=== PATIENT | female | born 1980 | race American Indian/Alaskan Native ===

== ENCOUNTER 2021-10-14 10:46 | Inpatient (IN) | payer OTHER, MEDICAID ==
[2021-10-14] MEDS ORDERED: hydrALAZINE 20 MG/1 ML INJ ONE (11:30)
[2021-10-14] MEDS ORDERED: MAGNESIUM SULFATE 40GM/1000ML 40 GM/1,000 ML BAG IV ONE (11:32)
[2021-10-14] MEDS ORDERED: MAGNESIUM SULFATE 4 GM/100 ML BAG IV ONE (11:32)
[2021-10-14] MEDS ORDERED: LACTATED RINGERS 1,000 ML ONE ×2 (11:32→15:35)
[2021-10-14] MEDS ORDERED: METOCLOPRAMIDE 10 MG/2 ML INJ IV NR (11:36)
[2021-10-14] MEDS ORDERED: FAMOTIDINE 20 MG/2 ML INJ IV NR (11:36)
[2021-10-14] MEDS ORDERED: BICITRA ORAL LIQD 30ML PO NR (11:36)
--- NOTE | 2021-10-14 11:44 | History and Physical Report ---
History of Present Illness Date of examination: 10/14/21 Date of admission: 10/14/21 11:27 Chief complaint: sent from [facility] for steroids and delivery for severe elevated BP History of present illness: at 32+wks by LMP c/w U/S seen at [facility] today and sent over with severe IUGR, severely gestational HTN for delivery and pt to get steroids as we stablize her BP in prep for the OR. Pt admits to movement and states she did not want to deliver here at [facility] because of previous bad experiences. Pt wanted to go to [place] to deliver her baby. PT admits to headache. Denies vag bleed or LOF or feeling contrations. Past History Past Medical History: other (Sickle cell trait) Past Surgical History: section (x1) - Obstetrical History : 4 Hx # Term Pregnancies: 2 (last del term c/s due NRFHR) Number of Living Children: 2 Medications and Allergies Allergies Allergy/AdvReac Type Severity Reaction Status Date / Time No Known Allergies Allergy Unverified 01/14/16 12:26 Home Medications Medication Instructions Recorded Confirmed Last Taken Type Ibuprofen [Motrin] 600 mg PO Q6H PRN #20 tablet 01/14/16 Unknown Rx methOCARBAMOL [Robaxin TAB] 500 mg PO BID PRN #14 tab 01/14/16 Unknown Rx Active Meds: Active Medications Citric Acid/Sodium Citrate (Bicitra Oral Liqd 30ml) 30 ml PO ONCE NR Stop: 10/14/21 18:00 Famotidine (Famotidine 20 Mg/2 Ml Inj) 20 mg IV ONCE ONE Stop: 10/14/21 11:37 Hydralazine HCl (Hydralazine 20 Mg/1 Ml Inj) 10 mg IV Q30MIN PRN PRN Reason: Hypertension Lactated Ringer's (Lactated Ringers) 1,000 mls @ 125 mls/hr IV DIRECT OMKAR Oxytocin/Sodium Chloride (Pitocin/Ns 30 Unit/500ml) 30 units in 500 mls @ 0 mls/hr IV TITR OMKAR; Protocol Magnesium Sulfate (Magnesium Sulfate 4gm/100ml) 4 gm in 100 mls @ 300 mls/hr IV ONCE ONE Stop: 10/14/21 11:51 Magnesium Sulfate (Magnesium Sulfate 40gm/1000ml) 40 gm in 1,000 mls @ 50 mls/hr IV DIRECT OMKAR Lactated Ringer's (Lactated Ringers) 1,000 mls @ 2,250 mls/hr IV PREOP OMKAR Stop: 10/15/21 12:12 Oxytocin/Sodium Chloride (Pitocin/Ns 30 Unit/500ml) 30 units in 500 mls @ 0 mls/hr IV TITR OMKAR; Protocol Cefazolin Sodium (Ancef/Sterile Water 2 Gm/20 Ml) 2 gm in 20 mls @ 80 mls/hr IV PREOP NR; Protocol Stop: 10/14/21 20:00 Labetalol HCl (Labetalol 20 Mg/4 Ml Inj) 20 mg IV ONCE ONE Stop: 10/14/21 11:33 Metoclopramide HCl (Metoclopramide 10 Mg/2 Ml Inj) 10 mg IV ONCE ONE Stop: 10/14/21 11:37 Review of Systems All systems: negative (headache) - Vital Signs Vital signs: Vital Signs Pulse BP 69 229/115 10/14/21 11:29 10/14/21 11:29 Temp Pulse Resp BP Pulse Ox 82 237/105 10/14/21 11:31 10/14/21 11:31 - Physical Exam Breasts: Positive: deferred Cardiovascular: Normal S1 Lungs: Positive: Normal air movement Uterus: Positive: other (small for gest age, gravid uterus, non-tender) - Obstetrical FHR: category 1 Uterine Contraction Monitor Mode: External Results Result Diagrams: 10/14/21 12:27 All other labs normal. Assessment and Plan Gest HTN with severe features, IUGR 1. Discussed with pt that her baby when delivered with go to the NICU and staff consulted to speak with pt 2. Will give mag sulfate now, and then IV hydrallazine and/or labetalol and when BP stable, will proceed for repeat c/section 3. Betamethasone 12mg IM now 4. Pt given the option to go to [facility] but no transfer after she is admitted plan of care discussed; all questions encouraged and answered
[2021-10-14] MEDS ORDERED: LACTATED RINGERS 1,000 ML IV SCH (11:45)
[2021-10-14] MEDS ORDERED: ceFAZolin/Water 2 GM/20 ML 2 GM/20 ML SYRINGE IV NR (12:00)
[2021-10-14] MEDS ORDERED: OXYTOCIN DRIP 30 UNITS/500 ML BAG IV SCH ×2 (12:00)
[2021-10-14] MEDS: LACTATED RINGERS 1,000 ML IV SCH ×2 (12:00→21:29)
[2021-10-14] MEDS ORDERED: ACETAMINOPHEN 500 MG TAB ONE ×2 (12:18→12:19)
[2021-10-14] MEDS ORDERED: KETOROLAC 30 MG/1 ML INJ ONE (12:33)
[2021-10-14] MEDS ORDERED: BUPIVACAINE/PF (0.5%) 5 MG/1 ML 30 ML VIAL INFILTRATI ONE (12:33)
[2021-10-14] MEDS ORDERED: LIDOCAINE MPF (2%) 20 MG/1 ML VIAL 5 ML ONE (12:33)
[2021-10-14] MEDS ORDERED: ONDANSETRON 4 MG/2 ML INJ ONE (12:33)
[2021-10-14] MEDS ORDERED: dexAMETHasone 20 MG/5 ML VIAL ONE (12:33)
[2021-10-14] MEDS: MAGNESIUM SULFATE 40GM/1000ML 40 GM/1,000 ML BAG IV SCH ×2 (12:39→18:15)
[2021-10-14] MEDS ORDERED: BETAMET ACET/BETAMET NA PH 6 MG/ML INJ 5 ML MDV IM ONE (12:39)
[2021-10-14 12:46] LABS: Hemoglobin 14.2 gm/dl (10.1-14.3); Mean Corpuscular HGB Conc 35 % (30-34); Mean Corpuscular Volume 83 fl (79-97); Platelet Count 230 K/mm3 (140-440); Red Blood Count 4.92 M/mm3 (3.65-5.03); Red Cell Distribution Width 14.1 % (13.2-15.2)
[2021-10-14 13:05] LABS: Partial Thromboplastin Time 27.4 Sec. (24.2-36.6)
[2021-10-14 13:09] LABS: INR 0.76 (0.87-1.13)
[2021-10-14] MEDS: hydrALAZINE 20 MG/1 ML INJ IV PRN (13:14)
[2021-10-14 13:16] LABS: Alanine Aminotransferase 27 units/L (7-56); Albumin 3.3 g/dL (3.9-5); Blood Urea Nitrogen 9 mg/dL (7-17); Calcium 9.7 mg/dL (8.4-10.2); Hemolysis Index 11
[2021-10-14 13:27] LABS: BUN/Creatinine Ratio 15; Bilirubin,Direct < 0.2 mg/dL (0-0.2)
--- NOTE | 2021-10-14 13:30 | Consultation ---
History of Present Illness Consult date: 10/14/21 Requesting physician: ASHLEY IVORY Reason for consult: prematurity History of present illness: INDICATIONS FOR CONSULT: Potential premature delivery Maternal Hx: 41 yo female GA: 32 and 0/7 wk Hx: Severe IUGR, Borderline Oligohydramnios, Reactive 1:2, superimposed pre-eclampsia. 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 Family Hx: Noncontributory. Social Hx: ETOH: No, Illegal Drugs: No. Smoking: No meds: Betamethasone x1 upon admission, hydralazine, magnesium, labetalol, zofran, vitamin D3, Vitamin B6, Unisom. Labs, if available: Blood type: B+ AntiBody screen: Negative . HBsAg: Negative RPR: Neg Rubella: Immune GBS: Unknown HIV: NR CH/GC/Trich: Negative Varicella: Non-Immune History of herpes (yet HSV II documented negative in records, ? HSV 1 positive?) Consulted to see this mom who is at 32 weeks with mother and father present in room. Mother was admitted at 32 after being seen at [facility] today and sent over with severe IUGR, severely gestational HTN for delivery and pt to get steroids as we stabilize her BP in prep for the OR During the consult with this patient she was advised of all the standard procedures done to babies born at 32 weeks gestation including admission to NICU. She was also advised of all the possible complications associated with premature . These complications include, but are not limited to IVH, RDS, CV Instability, Sepsis, Anemia of prematurity, Feeding problems, NEC, ROP, , etc. All her questions and concerns were addressed, and she was advised to follow the recommendations from her physicians. She was also encouraged to call for us in case of more questions. Thanks for this consultation. TOTAL TIME SPENT DURING THIS CONSULTATION WAS: 30 minutes. Medications and Allergies Allergies Allergy/AdvReac Type Severity Reaction Status Date / Time No Known Allergies Allergy Unverified 01/14/16 12:26 Home Medications Medication Instructions Recorded Confirmed Last Taken Type Ibuprofen [Motrin] 600 mg PO Q6H PRN #20 tablet 01/14/16 Unknown Rx methOCARBAMOL [Robaxin TAB] 500 mg PO BID PRN #14 tab 01/14/16 Unknown Rx Active Meds: Active Medications Betamethasone Acet/Betameth SodPhos (Betamet Acet/Betamet Na Ph 6 Mg/Ml Inj 5 Ml Mdv) 12 mg IM Q24HR OMKAR Stop: 10/16/21 10:01 Last Admin: 10/14/21 12:41 Dose: 12 mg Citric Acid/Sodium Citrate (Bicitra Oral Liqd 30ml) 30 ml PO ONCE NR Stop: 10/14/21 18:00 Famotidine (Famotidine 20 Mg/2 Ml Inj) 20 mg IV ONCE NR Stop: 10/14/21 18:00 Hydralazine HCl (Hydralazine 20 Mg/1 Ml Inj) 10 mg IV Q30MIN PRN PRN Reason: Hypertension Last Admin: 10/14/21 13:14 Dose: 10 mg Lactated Ringer's (Lactated Ringers) 1,000 mls @ 125 mls/hr IV DIRECT OMKAR Last Admin: 10/14/21 12:00 Dose: 125 mls/hr Oxytocin/Sodium Chloride (Pitocin/Ns 30 Unit/500ml) 30 units in 500 mls @ 0 mls/hr IV TITR OMKAR; Protocol Magnesium Sulfate (Magnesium Sulfate 40gm/1000ml) 40 gm in 1,000 mls @ 50 mls/hr IV DIRECT OMKAR Last Admin: 10/14/21 12:39 Dose: 2 gm/hr, 50 mls/hr Lactated Ringer's (Lactated Ringers) 1,000 mls @ 2,250 mls/hr IV PREOP OMKAR Stop: 10/15/21 12:12 Oxytocin/Sodium Chloride (Pitocin/Ns 30 Unit/500ml) 30 units in 500 mls @ 0 mls/hr IV TITR OMKAR; Protocol Cefazolin Sodium (Ancef/Sterile Water 2 Gm/20 Ml) 2 gm in 20 mls @ 80 mls/hr IV PREOP NR; Protocol Stop: 10/14/21 20:00 Labetalol HCl (Labetalol 200 Mg Tab) 200 mg PO BID OMKAR Metoclopramide HCl (Metoclopramide 10 Mg/2 Ml Inj) 10 mg IV ONCE NR Stop: 10/14/21 16:00 Exam Vital Signs Pulse BP 69 229/115 10/14/21 11:29 10/14/21 11:29 Temp Pulse Resp BP Pulse Ox 100 H 172/92 100 01/25/22 13:22 10/14/21 13:20 10/14/21 13:22 Results - Laboratory Findings 10/14/21 12:27 10/14/21 12:27 Abnormal lab results 10/14/21 10/14/21 10/14/21 Range/Units 12:27 12:27 12:27 MCHC 35 H (30-34) % PT 11.6 L (12.2-14.9) Sec. INR 0.76 L (0.87-1.13) Carbon Dioxide 19 L (22-30) mmol/L Alkaline Phosphatase 258 H (35-129) units/L Albumin 3.3 L (3.9-5) g/dL
[2021-10-14 14:04] LABS: Bilirubin,Urine NEG (Negative); Blood,Urine SM (Negative); Color,Urine Yellow (Yellow); Urobilinogen,Urine < 2.0 mg/dL (<2.0)
[2021-10-14 14:06] LABS: Protein,Urine >500 mg/dL (Negative)
--- NOTE | 2021-10-14 14:15 | Event Note ---
Date: 10/14/21 Pt has mag sulfate bolus and 2Gm/Hr in progress, no response to scalp stimulation. FHR category II and oxygen in progress. Cervix closed/thick/ high with irregular contractions noted. BP treated with hydrallazine 10mg x2 and will now give 20mg labetalol for BP 170's /80's; pt received consult from NICU. Plan to do repeat with refractory HTN. Pt told that if baby allows, I would love to get a 2nd dose of steroids in. Anesthesiologist notified of plan and will proceed to OR when the room is ready per charge nurse. All questions encouraged and answered. Pt has signed consents.
[2021-10-14] MEDS ORDERED: PHENYLEPHRINE 10 MG/1 ML INJ SDV ONE (15:02)
[2021-10-14] MEDS ORDERED: ePHEDrine SULFATE 50 MG/1 ML INJ ONE (15:03)
[2021-10-14] MEDS ORDERED: ceFAZolin/STERILE WATER 2 GM/20 ML SYRINGE IV ONE (15:10)
[2021-10-14] MEDS ORDERED: SUCCINYLCHOLINE CHLORIDE 200 MG/10 ML INJ MDV ONE (15:40)
[2021-10-14] MEDS ORDERED: propofoL 200 MG/20 ML VIAL IV ONE (15:40)
[2021-10-14] MEDS ORDERED: SODIUM CHLORIDE 0.9% IRR 1,500 ML BOTTLE IR ONE (15:50)
[2021-10-14] MEDS ORDERED: HYDROmorphone 1 MG/1 ML INJ ONE (15:50)
[2021-10-14] MEDS ORDERED: WATER FOR IRRIG STERILE 1,500 ML BOTTLE IR ONE (15:50)
[2021-10-14] MEDS ORDERED: OXYTOCIN 10 UNIT/1 ML INJ ONE (15:51)
--- NOTE | 2021-10-14 15:56 | Anesthesia Day of Surgery ---
Anesthesia Day of Surgery - Day of Surgery Patient Examined: Yes Patient H&P Reviewed: Yes Patient is NPO: Yes (0700 light breakfast) Beta Blockers: No Cardiac Clearance: No Pulmonary Clearance: No Raheem's Test: N/A
--- NOTE | 2021-10-14 15:57 | Anesthesia Consultation ---
Anesthesia Consult and Med Hx Date of service: 10/14/21 - Airway Anesthetic Teeth Evaluation: Good ROM Head & Neck: Adequate Mental/Hyoid Distance: Adequate Mallampati Class: Class II Intubation Access Assessment: Probably Good - Pulmonary Exam CTA: Yes - Cardiac Exam Cardiac Exam: RRR - Pre-Operative Health Status ASA Pre-Surgery Classification: ASA2, Emergency Proposed Anesthetic Plan: General, Spinal Nerve Block: TAP - Pulmonary Hx Smoking: No Hx Asthma: No Hx Sleep Apnea: No - Cardiovascular System Hx Hypertension: Yes (severe pre eclampsia) Hx Heart Attack/AMI: No Hx Angina: No Hx Peripheral Vascular Disease: No - Central Nervous System Hx Seizures: No Hx Psychiatric Problems: No - Gastrointestinal Hx Gastroesophageal Reflux Disease: No - Endocrine Hx Renal Disease: No Hx Liver Disease: No Hx Insulin Dependent Diabetes: No Hx Non-Insulin Dependent Diabetes: No Hx Hypothyroidism: No Hx Hyperthyroidism: No - Hematic Hx Anemia: No Hx Sickle Cell Disease: No - Other Systems Hx Alcohol Use: No - Additional Comments Anesthesia Medical History Comments: previous c/s
--- NOTE | 2021-10-14 16:01 | Progress Note ---
Spinal Anesthesia Block - Spinal Anesthesia Block Start Time: 15:10 Stop Time: 15:30 Performed by:: YOLANDE HIRSCH (Shanel VARNER) Procedure: Spinal anesthesia block is being performed for [c/s]. H&P, labs have been reviewed. Patient's questions and concerns have been answered. Informed consent has been performed. Timeout has was performed. Patient in sitting position on side of bed. Sterile prep and drape was performed. 3 mL 1% lidoc gosia skin wheal at L [3]-L [4]. Needle introducer advanced. 25-gauge spinal needle advanced, [+] CSF [-] blood. [Marcaine 10mg and Precedex 5mcg] Spinal dose was given. All needles removed. Patient tolerated procedure well. Spinal was performed by Shanel under my supervision. After 10 mins spinal not setting up, so the decision was made to re do the spinal. Patient in sitting position on the bed. Sterile prep and drape was performed. 3 mL 1% lidocaine skin wheal at L [3]-L [4]. Needle introducer advanced. 25- gauge spinal needle advanced, [+] CSF [-] blood. [Marcaine 10mg and Precedex 5mcg] Spinal dose was given. All needles removed. Patient tolerated procedure well. Spinal was performed by me. After 10 mins spinal not setting up, so the decision was made not to perform a 3rd spinal and to proceed with the case under GETA.
[2021-10-14] MEDS ORDERED: CARBOPROST TROMETHAMINE 250 MCG/1 ML INJ IM ONE (16:06)
[2021-10-14] MEDS ORDERED: miSOPROStol 200 MCG TAB ONE (16:06)
[2021-10-14] MEDS ORDERED: SODIUM CHLORIDE 0.9% 100 ML ONE (16:55)
--- NOTE | 2021-10-14 17:37 | Procedure Note ---
OB Delivery Note - Delivery Date of Delivery: 10/14/21 Surgeon: COOKIE IVORY Estimated blood loss: other (285cc by QBL) - Section Preop diagnosis: repeat , nonreassuring FHR tracing Postop diagnosis: other (Uterine Fibroids) Disposition: floor (labor and delivery for 24hr of mag sulfate) Complications: none Narrative: Date: 10/14/21 Surgeon: Cookie Ivory MD Preop Dx: IUP at 32.0wks, severe preeclampsia, H/O C/Section x1 not in labor Postop Dx: same and uterine fibroid Procedure : Repeat Low transverse section Anesthesia: Failed spinal x2 attempts, therefore general anesthesia Intake: 1800cc Output: 300cc clear EBL: 285cc by QBL per nurse After the risks, benefits and alternatives of procedure discussed, patient signed consents and was taken to the operating room. Pt was given spinal anesthesia and same not effective. Pt placed again in high fowlers and spinal re-done and same still not effective therefore general anesthesia. After same was adequate, patient was already prepped and draped in the usual sterile fashion. Minaya catheter in place and draining clear urine. Pt was already given prophylactic antibiotic per protocol and time out was already done Pfannenstiel skin incision was made and taken sharply thru previous scar to the fascia. Superior portion of fascia bluntly and peritoneal cavity entered sharply and manually extended with good visualization of the bladder. The bladder flap was created sharply using scalpel and manually and bladder blade placed. Lower uterine segment then entered transversely and amniotic sac entered using scalpel. Uterine incision extended manually. Smally Infant delivered, bulb suctioned, cord clamped and baby handed to waiting pediatricians. Placenta then manually delivered completely and uterine cavity cleared of all clots and debri. The uterus was exteriorized and closed in 2 layers using 0-monocryl suture in a running locked fashion and then an additional layer of imbrication suture. Excellent hemostasis noted. The gutters were cleared of clots and debri and the uterus replaced in the abdomen. The anterior peritoneum and thin rectus muscle reapproximated using 0- monocryl suture in a running fashion. Rectus fascia closed with 0-vicryl suture in a continuous fashion and subcutaneous tissue copiously irrigated with normal saline and re-approximated using 3-0 vicryl suture in a subcutaneous fashion. Excellent hemostasis remains. The skin was closed with 3-0 monocryl suture and steristrips, dermabond placed to left side approx 1.5cm to cover suture that surfaced thru the skin and then pressure dressing applied. Sponge, lap, instrument and needle counts x2 were normal. Patient tolerated the procedure well and was taken to recovery room stable. Findings: Viable female infant, APGARS 7/8 and weight 1150g and taken to NICU. Umbilical artery gas done in NICU and same was 7.29 and BE-10; Uterus with small anterior fibroids x2, both approx 2cm; normal tubes and ovaries tubes and ovaries. - Infant A at 1 minute: 7 at 5 minutes: 8 Gender: Female (wt 1150g; clear fluid;)
[2021-10-15] MEDS ORDERED: WITCH HAZEL/ GLYCERIN PAD TP PRN (00:11)
[2021-10-15] MEDS ORDERED: LANOLIN/ZINC/DIMETHICONE (LANSINOH) 7 GM TP PRN (00:11)
[2021-10-15] MEDS ORDERED: ACETAMINOPHEN 325 MG TAB PO PRN (00:11)
[2021-10-15] MEDS ORDERED: NALOXONE 0.4 MG/1 ML INJ IV PRN (00:11)
[2021-10-15] MEDS ORDERED: OXYTOCIN DRIP 30 UNITS/500 ML BAG IV SCH (00:11)
[2021-10-15] MEDS ORDERED: ACETAMINOPHEN 500 MG TAB ONE (00:17)
[2021-10-15] MEDS: oxyCODONE /ACETAMINOPHEN 5-325MG TAB PO PRN ×4 (02:15→18:14)
[2021-10-15] MEDS: IBUPROFEN 600 MG TAB PO PRN (02:15)
[2021-10-15] MEDS ORDERED: ACETAMINOPHEN 500 MG TAB PO PRN (03:30)
[2021-10-15 06:10] LABS: Basophils % (Auto) 0.2 % (0.0-1.8); Hematocrit 35.5 % (30.3-42.9); Hemoglobin 11.9 gm/dl (10.1-14.3); Lymphocytes # (Auto) 1.1 K/mm3 (1.2-5.4); Lymphocytes % (Auto) 6.6 % (13.4-35.0); Mean Corpuscular HGB Conc 34 % (30-34); Mean Corpuscular Volume 85 fl (79-97); Monocytes # (Auto) 0.6 K/mm3 (0.0-0.8); Monocytes % (Auto) 3.6 % (0.0-7.3); Platelet Count 236 K/mm3 (140-440); Red Blood Count 4.17 M/mm3 (3.65-5.03); Red Cell Distribution Width 14.3 % (13.2-15.2)
[2021-10-15] MEDS: IBUPROFEN 800 MG TAB PO PRN ×3 (09:17→18:14)
[2021-10-15] MEDS: MORPHINE 4 MG/1 ML INJ IV PRN ×3 (09:22→19:57)
--- NOTE | 2021-10-15 09:39 | Progress Note ---
Assessment and Plan A: POD #1 Preeclampsia P: Follow Routine PostOp Orders Continue MagSO4 x 24 hours post delivery Continue Standard Magnesium Precautions Subjective - Subjective Date of service: 10/15/21 Patient reports: appetite normal, voiding normally (Minaya in place; adquate urine output), flatus, other (States pain medication causes dizziness; denies HAs, visual changes, and N&V) : in NICU Objective - Vital Signs Latest vital signs: Vital Signs Temp Pulse Resp BP Pulse Ox Pulse Ox 10/15/21 09:35 79 96 10/15/21 09:30 83 93 10/15/21 09:25 86 96 10/15/21 09:20 79 96 10/15/21 09:15 78 96 10/15/21 09:10 79 96 10/15/21 09:07 77 131/77 10/15/21 09:05 86 94 10/15/21 09:00 80 96 10/15/21 08:55 80 96 10/15/21 08:50 83 97 10/15/21 08:45 78 96 10/15/21 08:40 87 96 10/15/21 08:37 78 132/82 10/15/21 08:35 80 96 10/15/21 08:30 81 95 10/15/21 08:25 79 95 10/15/21 08:20 79 96 10/15/21 08:15 77 96 10/15/21 08:10 78 96 10/15/21 08:07 77 136/77 10/15/21 08:05 77 95 10/15/21 08:00 80 95 10/15/21 07:55 79 95 10/15/21 07:50 79 95 10/15/21 07:45 77 96 10/15/21 07:40 80 96 10/15/21 07:37 78 133/75 10/15/21 07:35 79 96 10/15/21 07:30 78 95 10/15/21 07:25 78 96 10/15/21 07:20 78 96 10/15/21 07:15 79 95 10/15/21 07:14 84 94 10/15/21 07:10 85 94 10/15/21 07:07 81 134/66 10/15/21 07:05 82 95 10/15/21 07:00 78 95 10/15/21 06:55 79 95 10/15/21 06:50 78 95 10/15/21 06:45 78 95 10/15/21 06:40 77 96 10/15/21 06:37 76 125/74 10/15/21 06:35 77 96 10/15/21 06:31 81 94 10/15/21 06:30 81 95 10/15/21 06:25 80 95 10/15/21 06:20 81 95 10/15/21 06:15 80 96 10/15/21 06:10 79 95 10/15/21 06:07 80 134/75 10/15/21 06:05 78 96 10/15/21 06:00 81 96 10/15/21 05:55 79 96 10/15/21 05:54 79 94 10/15/21 05:50 83 96 10/15/21 05:45 84 96 10/15/21 05:40 79 97 10/15/21 05:37 82 128/69 10/15/21 05:35 80 97 10/15/21 05:30 81 97 10/15/21 05:25 80 96 10/15/21 05:20 82 96 10/15/21 05:15 80 97 10/15/21 05:10 79 98 10/15/21 05:07 82 133/96 10/15/21 05:05 85 94 10/15/21 05:00 81 96 10/15/21 04:55 79 96 10/15/21 04:50 81 96 10/15/21 04:45 82 96 10/15/21 04:40 84 95 10/15/21 04:37 82 137/83 10/15/21 04:35 82 96 10/15/21 04:30 85 96 10/15/21 04:25 81 96 10/15/21 04:20 82 96 10/15/21 04:15 80 95 10/15/21 04:10 81 95 10/15/21 04:07 81 139/85 10/15/21 04:05 82 96 10/15/21 04:00 82 96 10/15/21 03:55 79 97 10/15/21 03:50 82 96 10/15/21 03:46 85 94 10/15/21 03:45 80 95 10/15/21 03:40 83 94 10/15/21 03:38 81 94 01/26/22 03:37 80 142/82 10/15/21 03:35 80 95 10/15/21 03:30 82 95 10/15/21 03:25 79 95 10/15/21 03:20 80 95 10/15/21 03:15 84 95 10/15/21 03:10 82 94 10/15/21 03:07 82 135/82 94 10/15/21 03:05 81 96 10/15/21 03:00 81 96 10/15/21 02:55 84 96 10/15/21 02:50 82 95 10/15/21 02:45 84 95 10/15/21 02:40 87 96 10/15/21 02:35 81 95 10/15/21 02:34 80 142/88 10/15/21 02:30 82 96 10/15/21 02:29 81 145/89 10/15/21 02:25 83 96 10/15/21 02:24 83 139/87 10/15/21 02:20 78 97 10/15/21 02:19 80 133/81 10/15/21 02:15 80 96 10/15/21 02:14 78 137/81 10/15/21 02:10 78 95 10/15/21 02:09 81 134/80 10/15/21 02:05 78 96 10/15/21 02:04 81 139/81 10/15/21 02:00 79 95 10/15/21 01:59 78 142/83 10/15/21 01:55 76 95 10/15/21 01:54 78 142/85 10/15/21 01:50 79 96 10/15/21 01:49 82 137/82 10/15/21 01:45 80 96 10/15/21 01:44 82 146/87 10/15/21 01:40 81 96 10/15/21 01:39 83 148/87 10/15/21 01:35 80 96 10/15/21 01:34 81 151/87 10/15/21 01:30 80 96 10/15/21 01:29 82 154/89 10/15/21 01:25 80 96 10/15/21 01:24 81 153/88 10/15/21 01:20 80 96 10/15/21 01:19 80 154/89 10/15/21 01:15 78 97 10/15/21 01:14 76 149/87 10/15/21 01:10 80 96 10/15/21 01:09 77 157/90 10/15/21 01:05 81 97 10/15/21 01:04 77 156/92 10/15/21 01:03 97.9 F 10/15/21 01:00 81 97 10/15/21 00:59 78 150/91 10/15/21 00:55 80 96 10/15/21 00:54 82 148/88 10/15/21 00:50 82 96 10/15/21 00:48 81 147/88 10/15/21 00:45 80 96 10/15/21 00:44 81 154/93 10/15/21 00:40 82 96 10/15/21 00:39 80 152/90 10/15/21 00:38 81 146/86 10/15/21 00:35 81 96 10/15/21 00:34 80 161/94 10/15/21 00:33 82 159/95 10/15/21 00:31 79 160/96 10/15/21 00:30 77 161/96 97 10/15/21 00:25 80 97 10/15/21 00:20 84 96 10/15/21 00:18 81 165/91 10/15/21 00:17 81 165/91 10/15/21 00:15 80 96 10/15/21 00:10 84 96 10/15/21 00:05 83 96 10/15/21 00:01 90 164/89 10/15/21 00:00 85 97 10/14/21 23:55 83 95 10/14/21 23:53 87 94 10/14/21 23:50 83 95 10/14/21 23:47 84 165/90 10/14/21 23:45 85 96 10/14/21 23:40 82 96 10/14/21 23:35 81 96 10/14/21 23:32 82 170/93 10/14/21 23:30 81 96 10/14/21 23:25 83 96 10/14/21 23:20 79 96 10/14/21 23:17 86 171/92 10/14/21 23:15 79 96 10/14/21 23:10 78 96 10/14/21 23:05 79 96 10/14/21 23:02 77 166/91 10/14/21 23:00 78 96 10/14/21 22:55 78 97 10/14/21 22:50 78 96 10/14/21 22:47 75 172/95 10/14/21 22:45 78 96 10/14/21 22:40 79 96 10/14/21 22:35 74 97 10/14/21 22:32 80 160/93 10/14/21 22:30 77 96 10/14/21 22:25 77 96 10/14/21 22:20 81 97 10/14/21 22:17 80 161/91 10/14/21 22:15 79 97 10/14/21 22:10 73 97 10/14/21 22:05 78 97 10/14/21 22:02 71 167/94 10/14/21 22:00 75 97 10/14/21 21:55 74 97 10/14/21 21:50 75 97 10/14/21 21:47 73 166/98 10/14/21 21:45 74 97 10/14/21 21:40 73 97 10/14/21 21:38 79 94 10/14/21 21:35 75 97 10/14/21 21:30 80 97 10/14/21 21:29 77 162/97 10/14/21 21:28 79 162/97 10/14/21 21:25 73 97 10/14/21 21:20 87 96 10/14/21 21:17 71 157/95 10/14/21 21:15 72 96 10/14/21 21:10 75 97 10/14/21 21:05 74 97 10/14/21 21:02 74 153/95 10/14/21 21:00 76 97 10/14/21 20:55 79 96 10/14/21 20:50 76 95 10/14/21 19:15 99 10/14/21 19:00 98.0 F 82 18 139/99 100 10/14/21 18:45 79 22 144/96 100 10/14/21 18:30 77 17 151/98 100 10/14/21 18:15 80 15 148/100 100 10/14/21 18:00 76 16 158/98 100 10/14/21 17:45 79 22 144/95 100 10/14/21 17:40 80 18 148/90 100 10/14/21 17:35 78 17 135/78 100 10/14/21 17:31 97.7 F 92 H 15 158/99 100 10/14/21 14:47 92 H 99 10/14/21 14:43 95 H 99 10/14/21 14:38 90 151/81 10/14/21 14:37 92 H 99 10/14/21 14:32 98 H 99 10/14/21 14:28 94 H 99 10/14/21 14:23 88 156/83 10/14/21 14:22 90 99 10/14/21 14:17 96 H 99 10/14/21 14:12 98 H 99 10/14/21 14:08 101 H 169/88 10/14/21 14:07 104 H 99 10/14/21 14:02 104 H 99 10/14/21 13:58 107 H 99 10/14/21 13:54 101 H 179/88 10/14/21 13:52 111 H 99 10/14/21 13:47 106 H 99 10/14/21 13:43 99 H 100 10/14/21 13:38 93 H 100 10/14/21 13:33 95 H 140/86 10/14/21 13:32 95 H 100 10/14/21 13:27 90 172/92 100 10/14/21 13:22 100 H 100 10/14/21 13:20 86 172/92 10/14/21 13:17 88 100 10/14/21 13:14 82 195/103 10/14/21 13:12 73 100 10/14/21 13:09 73 195/103 10/14/21 13:06 73 100 10/14/21 13:02 78 100 10/14/21 12:57 83 99 10/14/21 12:52 83 99 10/14/21 12:47 82 99 10/14/21 12:42 85 100 10/14/21 12:37 86 100 10/14/21 12:32 81 172/96 100 10/14/21 12:27 89 100 10/14/21 12:11 73 184/106 10/14/21 12:05 73 237/105 01/25/22 11:31 82 237/105 01/25/22 11:29 69 229/115 Intake and Output 10/14/21 10/15/21 10/15/21 22:59 06:59 14:59 Intake Total 3180 Output Total 600 Balance 2580 Intake: IV 3180 Lactated Ringers 1,000 ml 1000 @ 125 mls/hr IV DIRECT OMKAR Rx#:[id number] MAGNESIUM SULFATE 40GM/ 280 1000ML 40 gm In 1,000 ml @ 2 GM/HR 50 mls/hr IV DIRECT OMKAR Rx#:[id number] Output: Urine 600 Other: Weight 81.647 kg Estimated Blood Loss 295 - Exam Breasts: Present: normal Cardiovascular: Present: Regular rate Lungs: Present: Clear to auscultation, Normal air movement Abdomen: Present: normal appearance, soft, normal bowel sounds Uterus: Present: normal, firm, fundal height at umbilicus Extremities: Present: normal Incision: Present: dry, dressed - Labs Labs: Abnormal lab results 10/14/21 10/14/21 10/14/21 Range/Units 12:27 12:27 12:27 WBC (4.5-11.0) K/mm3 MCHC 35 H (30-34) % Lymph % (Auto) (13.4-35.0) % Lymph # (Auto) (1.2-5.4) K/mm3 Seg Neutrophils % (40.0-70.0) % Seg Neutrophils # (1.8-7.7) K/mm3 PT 11.6 L (12.2-14.9) Sec. INR 0.76 L (0.87-1.13) Carbon Dioxide 19 L (22-30) mmol/L Magnesium (1.7-2.3) mg/dL Alkaline Phosphatase 258 H (35-129) units/L Albumin 3.3 L (3.9-5) g/dL 10/15/21 10/15/21 Range/Units 05:58 05:58 WBC 16.9 H (4.5-11.0) K/mm3 MCHC (30-34) % Lymph % (Auto) 6.6 L (13.4-35.0) % Lymph # (Auto) 1.1 L (1.2-5.4) K/mm3 Seg Neutrophils % 89.6 H (40.0-70.0) % Seg Neutrophils # 15.1 H (1.8-7.7) K/mm3 PT (12.2-14.9) Sec. INR (0.87-1.13) Carbon Dioxide (22-30) mmol/L Magnesium 6.10 H (1.7-2.3) mg/dL Alkaline Phosphatase (35-129) units/L Albumin (3.9-5) g/dL
[2021-10-15] MEDS ORDERED: BETAMET ACET/BETAMET NA PH 6 MG/ML INJ 5 ML MDV IM SCH (10:00)
[2021-10-15] MEDS ORDERED: MAGNESIUM SULFATE 40GM/1000ML 40 GM/1,000 ML BAG IV ONE (10:09)
[2021-10-15] MEDS: PRENATAL VIT27-FE FUMARATE-FOLIC ACID VIT TAB PO SCH (10:18)
[2021-10-15] MEDS: FERROUS SULFATE 325 MG TAB PO SCH (10:18)
[2021-10-15] MEDS ORDERED: MAGNESIUM SULFATE 40GM/1000ML 40 GM/1,000 ML BAG IV SCH (13:00)
--- NOTE | 2021-10-15 13:53 | Post Anesthesia Evaluation ---
- Post Anesthesia Evaluation Patient Participated: Yes Airway Patent: Yes Stable Respiratory Function: Yes Nausea/Vomiting: No Temp > 96.8F: Yes Pain Manageable: Yes Adequeate Hydration: Yes Anesthesia Complications: No Block Receding Appropriately: Yes Patient on Ventilator: No
--- NOTE | 2021-10-15 14:45 | Cat Scan Report ---
CT ABDOMEN AND PELVIS WITHOUT CONTRAST INDICATION / CLINICAL INFORMATION: abdominal pain. TECHNIQUE: Axial CT images were obtained through the abdomen and pelvis without IV contrast. All CT scans at this location are performed using CT dose reduction for ALARA by means of automated exposure control. COMPARISON: None available. FINDINGS: LOWER CHEST: Small basilar effusions have associated atelectasis. LIVER: No significant abnormality. GALLBLADDER: No significant abnormality. BILE DUCTS: No significant abnormality. PANCREAS: No significant abnormality. SPLEEN: No significant abnormality. ADRENALS: No significant abnormality. RIGHT KIDNEY / URETER: No significant abnormality. LEFT KIDNEY / URETER: No significant abnormality. STOMACH / SMALL BOWEL: Moderate distention without wall thickening. COLON: Mild/moderate distention without wall thickening. APPENDIX: No significant abnormality. PERITONEUM: No significant free fluid. No free air. No fluid collection. LYMPH NODES: No significant adenopathy. VASCULAR STRUCTURES: No significant abnormality. URINARY BLADDER: No significant abnormality. REPRODUCTIVE ORGANS: Enlarged uterus with mild internal debris. ADDITIONAL FINDINGS: Postsurgical changes anterior abdominal wall inferiorly including air, fluid and a small amount of blood. Mild/moderate high density material which is presumably blood is seen at th e extraperitoneal space anteriorly adjacent to the bladder extending along the paracolic gutters left greater than right. SKELETAL SYSTEM: No significant abnormality. IMPRESSION: 1. Presumed recent with expected postsurgical change at the uterus. 2. Mild/moderate extra peritoneal high density material is presumably blood. 3. Mild/moderate postoperative ileus. 4. Small basilar effusions with associated atelectasis. Signer Name: Floyd Brennan MD Signed: 10/15/2021 2:41 PM Workstation Name: [id number]
[2021-10-15] MEDS: SIMETHICONE 80 MG CHEW TAB PO PRN (15:38)
[2021-10-15] MEDS ORDERED: MAGNESIUM HYDROXIDE (MOM) ORAL LIQD UDC PO PRN (21:23)
[2021-10-16] MEDS: IBUPROFEN 800 MG TAB PO PRN ×2 (01:08→05:58)
[2021-10-16] MEDS: oxyCODONE /ACETAMINOPHEN 5-325MG TAB PO PRN ×2 (01:08→05:58)
[2021-10-16] MEDS: hydrALAZINE 20 MG/1 ML INJ IV PRN (08:29)
[2021-10-16] MEDS: MORPHINE 4 MG/1 ML INJ IV PRN ×2 (08:31→18:39)
[2021-10-16] MEDS: ONDANSETRON 4 MG/2 ML INJ IV PRN ×2 (10:11→18:34)
--- NOTE | 2021-10-16 10:20 | Progress Note ---
Assessment and Plan A: S/P Repeat LTCS with severe preeclampsia No gas N/V P: Continue routine pp orders Labetalol increased to 300mg bid Zofran for n/v MOM and Simethicone for gas Encourage ambulation Dr Leung consulted Subjective - Subjective Date of service: 10/16/21 Principal diagnosis: s/p repeat LTCS Patient reports: voiding normally, pain well controlled, appetite poor, nauseated, other (Pt reports no gas yet and nausea and vomiting. ) [employer]: doing well, bottle feeding Objective - Vital Signs Latest vital signs: Vital Signs Temp Pulse Resp BP BP BP Pulse Ox 10/16/21 09:55 92 H 150/95 10/16/21 09:49 93 H 152/94 10/16/21 09:36 95 H 159/98 10/16/21 08:46 97 H 20 165/96 96 10/16/21 08:40 91 H 20 171/102 97 10/16/21 08:33 90 20 178/102 97 10/16/21 08:31 18 10/16/21 08:29 87 183/103 10/16/21 03:50 97.9 F 74 20 146/80 95 10/16/21 00:13 98.0 F 80 20 144/72 95 10/15/21 21:58 75 143/89 10/15/21 21:06 97.6 F 73 20 143/89 95 10/15/21 20:35 10/15/21 20:04 78 96 10/15/21 19:59 77 95 10/15/21 19:57 18 10/15/21 19:54 77 96 10/15/21 19:50 98.1 F 10/15/21 19:49 76 96 10/15/21 19:39 76 130/78 10/15/21 19:27 10/15/21 19:14 18 10/15/21 19:09 83 97 10/15/21 19:08 78 153/91 10/15/21 19:04 85 96 10/15/21 18:59 88 97 10/15/21 18:54 81 158/97 96 10/15/21 18:49 80 96 10/15/21 18:44 82 97 10/15/21 18:39 82 160/100 97 10/15/21 18:34 82 96 10/15/21 18:29 80 96 10/15/21 18:24 83 140/94 96 10/15/21 18:19 83 96 10/15/21 18:14 85 96 10/15/21 18:09 83 97 10/15/21 18:04 79 95 10/15/21 17:59 78 96 10/15/21 17:54 79 96 10/15/21 17:49 80 95 10/15/21 17:44 82 95 10/15/21 17:39 78 95 10/15/21 17:36 76 136/78 10/15/21 17:34 78 95 10/15/21 17:31 80 94 10/15/21 17:29 83 95 10/15/21 17:24 81 96 10/15/21 17:19 84 95 10/15/21 17:17 80 94 10/15/21 17:14 83 95 10/15/21 17:09 77 95 10/15/21 17:08 80 94 10/15/21 17:04 78 95 10/15/21 17:00 80 94 10/15/21 16:59 81 95 10/15/21 16:54 82 96 10/15/21 16:49 83 95 10/15/21 16:44 79 95 10/15/21 16:42 80 94 10/15/21 16:39 81 95 10/15/21 16:36 81 137/85 10/15/21 16:34 83 96 10/15/21 16:30 80 94 10/15/21 16:29 81 95 10/15/21 16:25 82 94 10/15/21 16:24 83 95 10/15/21 16:19 87 96 10/15/21 16:18 86 94 10/15/21 16:14 86 95 10/15/21 16:11 87 94 10/15/21 16:09 82 95 10/15/21 16:04 81 95 10/15/21 15:59 86 95 10/15/21 15:54 81 96 10/15/21 15:49 86 95 10/15/21 15:44 83 95 10/15/21 15:39 87 96 10/15/21 15:36 82 141/83 10/15/21 15:34 83 95 10/15/21 15:29 85 96 10/15/21 15:24 84 96 10/15/21 15:19 85 96 10/15/21 15:14 86 95 10/15/21 15:09 86 97 10/15/21 15:04 87 97 10/15/21 14:59 86 95 10/15/21 14:54 84 96 10/15/21 14:49 85 97 10/15/21 14:44 83 97 10/15/21 14:39 79 97 10/15/21 14:34 82 98 10/15/21 14:10 82 96 10/15/21 14:07 81 147/76 10/15/21 14:05 83 97 10/15/21 14:00 82 96 10/15/21 13:55 80 97 10/15/21 13:50 86 97 10/15/21 13:45 81 97 10/15/21 13:40 84 97 10/15/21 13:37 82 151/79 10/15/21 13:35 80 97 10/15/21 13:30 83 97 10/15/21 13:25 84 96 10/15/21 13:20 80 96 10/15/21 13:15 85 96 10/15/21 13:10 82 96 10/15/21 13:07 81 147/84 10/15/21 13:05 78 95 10/15/21 13:00 83 96 10/15/21 12:55 80 95 10/15/21 12:50 79 96 10/15/21 12:45 78 96 10/15/21 12:43 84 94 10/15/21 12:40 80 95 10/15/21 12:37 78 148/83 10/15/21 12:35 78 96 10/15/21 12:30 79 96 10/15/21 12:25 84 96 10/15/21 12:20 83 97 10/15/21 12:15 81 93 10/15/21 12:10 87 97 10/15/21 12:07 79 92 10/15/21 12:05 83 96 10/15/21 12:00 80 96 10/15/21 11:55 81 96 10/15/21 11:50 80 96 10/15/21 11:45 79 95 10/15/21 11:40 79 96 10/15/21 11:37 78 141/76 10/15/21 11:35 80 96 10/15/21 11:30 83 97 10/15/21 11:25 78 96 10/15/21 11:20 84 96 10/15/21 11:15 81 96 10/15/21 11:10 79 97 10/15/21 11:07 79 137/64 10/15/21 11:05 78 96 10/15/21 11:00 78 96 10/15/21 10:56 79 93 10/15/21 10:55 82 96 10/15/21 10:50 80 95 10/15/21 10:45 79 96 10/15/21 10:41 81 94 10/15/21 10:40 81 95 10/15/21 10:37 75 134/74 10/15/21 10:35 76 97 10/15/21 10:30 81 97 10/15/21 10:28 83 92 10/15/21 10:25 82 96 10/15/21 10:23 82 94 10/15/21 10:20 82 96 10/15/21 10:15 86 95 Pulse Ox 10/16/21 09:55 10/16/21 09:49 10/16/21 09:36 10/16/21 08:46 10/16/21 08:40 10/16/21 08:33 10/16/21 08:31 10/16/21 08:29 10/16/21 03:50 10/16/21 00:13 10/15/21 21:58 10/15/21 21:06 10/15/21 20:35 95 10/15/21 20:04 10/15/21 19:59 10/15/21 19:57 10/15/21 19:54 10/15/21 19:50 10/15/21 19:49 10/15/21 19:39 10/15/21 19:27 97 10/15/21 19:14 10/15/21 19:09 10/15/21 19:08 10/15/21 19:04 10/15/21 18:59 10/15/21 18:54 10/15/21 18:49 10/15/21 18:44 10/15/21 18:39 10/15/21 18:34 10/15/21 18:29 10/15/21 18:24 10/15/21 18:19 10/15/21 18:14 10/15/21 18:09 10/15/21 18:04 10/15/21 17:59 10/15/21 17:54 10/15/21 17:49 10/15/21 17:44 10/15/21 17:39 10/15/21 17:36 10/15/21 17:34 10/15/21 17:31 10/15/21 17:29 10/15/21 17:24 10/15/21 17:19 10/15/21 17:17 10/15/21 17:14 10/15/21 17:09 10/15/21 17:08 10/15/21 17:04 10/15/21 17:00 10/15/21 16:59 10/15/21 16:54 10/15/21 16:49 10/15/21 16:44 10/15/21 16:42 10/15/21 16:39 10/15/21 16:36 10/15/21 16:34 10/15/21 16:30 10/15/21 16:29 10/15/21 16:25 10/15/21 16:24 10/15/21 16:19 10/15/21 16:18 10/15/21 16:14 10/15/21 16:11 10/15/21 16:09 10/15/21 16:04 10/15/21 15:59 10/15/21 15:54 10/15/21 15:49 10/15/21 15:44 10/15/21 15:39 10/15/21 15:36 10/15/21 15:34 10/15/21 15:29 10/15/21 15:24 10/15/21 15:19 10/15/21 15:14 10/15/21 15:09 10/15/21 15:04 10/15/21 14:59 10/15/21 14:54 10/15/21 14:49 10/15/21 14:44 10/15/21 14:39 10/15/21 14:34 10/15/21 14:10 10/15/21 14:07 10/15/21 14:05 10/15/21 14:00 10/15/21 13:55 10/15/21 13:50 10/15/21 13:45 10/15/21 13:40 10/15/21 13:37 10/15/21 13:35 10/15/21 13:30 10/15/21 13:25 10/15/21 13:20 10/15/21 13:15 10/15/21 13:10 10/15/21 13:07 10/15/21 13:05 10/15/21 13:00 10/15/21 12:55 10/15/21 12:50 10/15/21 12:45 10/15/21 12:43 10/15/21 12:40 10/15/21 12:37 10/15/21 12:35 10/15/21 12:30 10/15/21 12:25 10/15/21 12:20 10/15/21 12:15 10/15/21 12:10 10/15/21 12:07 10/15/21 12:05 10/15/21 12:00 10/15/21 11:55 10/15/21 11:50 10/15/21 11:45 10/15/21 11:40 10/15/21 11:37 10/15/21 11:35 10/15/21 11:30 10/15/21 11:25 10/15/21 11:20 10/15/21 11:15 10/15/21 11:10 10/15/21 11:07 10/15/21 11:05 10/15/21 11:00 10/15/21 10:56 10/15/21 10:55 10/15/21 10:50 10/15/21 10:45 10/15/21 10:41 10/15/21 10:40 10/15/21 10:37 10/15/21 10:35 10/15/21 10:30 10/15/21 10:28 10/15/21 10:25 10/15/21 10:23 10/15/21 10:20 10/15/21 10:15 Intake and Output 10/15/21 10/16/21 10/16/21 22:59 06:59 14:59 Intake Total 360.833 480 Output Total 1999 300 Balance -1639.167 180 Intake: IV 360.833 MAGNESIUM SULFATE 40GM/ 260.833 1000ML 40 gm In 1,000 ml @ 2 GM/HR 50 mls/hr IV DIRECT [facility] Rx#:[id number] ceFAZolin 2 GM In NaCl 0. 100 9% 100 ml @ 200 mls/hr IV Q8H [facility] Rx#:[id number] Oral 480 Output: Urine 2000 300 Indwelling Catheter 1400 Uretheral (Minaya) 600 Void 300 Other: Total, Intake Amount 240 Total, Output Amount 400 300 - Exam Breasts: Present: normal Abdomen: Present: distention, abnormal bowel sounds Vulva: both: normal Uterus: Present: normal, firm, fundal height below umbilicus Extremities: Present: normal Incision: Present: normal, dry, intact - Labs Labs: Abnormal lab results 10/15/21 Range/Units 17:56 Magnesium 6.70 H (1.7-2.3) mg/dL
[2021-10-16] MEDS ORDERED: SODIUM CHLORIDE P/F VIAL 10 ML 10 ML ONE (18:26)
--- NOTE | 2021-10-16 19:34 | XRay Report ---
ABDOMEN 1 VIEW(S) INDICATION / CLINICAL INFORMATION: vomiting/abd distention. COMPARISON: CT one day prior FINDINGS: TUBES / LINES: None. BOWEL GAS PATTERN: Gaseous distention of small and large bowel is again noted similar to the CT. FREE AIR / EXTRALUMINAL GAS: None seen. ADDITIONAL FINDINGS: No significant additional findings. IMPRESSION: 1. Persistent presumed adynamic ileus. Signer Name: Petey Hamilton MD Signed: 10/16/2021 7:30 PM Workstation Name: [id number]
[2021-10-16 20:41] LABS: Basophils % (Auto) 0.1 % (0.0-1.8); Eosinophils % (Auto) 0.2 % (0.0-4.3); Hematocrit 31.3 % (30.3-42.9); Hemoglobin 10.8 gm/dl (10.1-14.3); Lymphocytes % (Auto) 9.4 % (13.4-35.0); Mean Corpuscular HGB Conc 34 % (30-34); Mean Corpuscular Volume 86 fl (79-97); Monocytes # (Auto) 0.4 K/mm3 (0.0-0.8); Monocytes % (Auto) 3.7 % (0.0-7.3); Platelet Count 249 K/mm3 (140-440); Red Blood Count 3.65 M/mm3 (3.65-5.03); Red Cell Distribution Width 14.7 % (13.2-15.2)
[2021-10-16 20:50] LABS: Alanine Aminotransferase 216 units/L (7-56); Albumin 2.7 g/dL (3.9-5); Blood Urea Nitrogen 9 mg/dL (7-17); Calcium 7.5 mg/dL (8.4-10.2); Hemolysis Index 3
[2021-10-16 20:51] LABS: BUN/Creatinine Ratio 15
[2021-10-16] MEDS: LACTATED RINGERS 1,000 ML IV SCH (23:37)
[2021-10-16] MEDS: METOCLOPRAMIDE 10 MG/2 ML INJ IV PRN (23:38)
[2021-10-17] MEDS: LACTATED RINGERS 1,000 ML IV SCH (05:53)
[2021-10-17] MEDS: METOCLOPRAMIDE 10 MG/2 ML INJ IV PRN ×2 (05:54→13:46)
--- NOTE | 2021-10-17 11:22 | Progress Note ---
Assessment and Plan POD#3 repeat c/section with ileus. severe preeclampsia 1. Will continue NPO, reglan ATC and add IV antibiotics x24hrs with zosyn antibiotic 2. Await cbc and cmp repeated; If hgb falls, then will consult IR to see if there's active bleed in the extraperitoneal area noted on CT scan 2 days ago. 3. Milk expressed bilaterally from both breasts and pt reassured 4. Labetalol increased 300mg every 8hrs 5. Plan of care discussed and pt is allowed to shower and be transported to see her baby All questions encouraged and answered Subjective Date of service: 10/17/21 Principal diagnosis: POD#3 Repeat C/S with ileus, severe preeclampsia with high LFTs now Interval history: pt states she passed gas yesterday and feels better today, but no gas today. Pt denies nausea and wants to eat real food. pt has been voiding without difficulty. Pain controlled with meds and only anteriorly. Denies back or flank pain. pt wants to start breast pumping and states she has no milk. Denies SOB, chest pain or dizziness. pt ambulates to restroom without difficulty. Objective - Constitutional Vitals: Vital Signs - 12hr 10/16/21 10/16/21 10/17/21 23:18 23:20 00:34 Temperature 99.5 F Pulse Rate 84 84 92 H Respiratory 18 16 Rate Blood Pressure 174/84 174/84 Blood Pressure 137/84 [Left] O2 Sat by Pulse 98 Oximetry 10/17/21 10/17/21 04:59 08:16 Temperature 98.2 F 99.8 F H Pulse Rate 94 H 93 H Respiratory 20 18 Rate Blood Pressure 160/91 Blood Pressure 153/82 [Left] O2 Sat by Pulse 95 96 Oximetry General appearance: Present: no acute distress - Neck Neck: normal ROM - Respiratory Respiratory effort: normal - Cardiovascular Rhythm: regular Extremities: Full ROM - Gastrointestinal General gastrointestinal: Present: distended (mild), hypoactive bowel sounds (to all quads), other (Incision with steristrips C/D/I without drainage) - Genitourinary Female genitourinary: other (lochia small) - Integumentary Integumentary: warm, dry - Neurologic Neurologic: CNII-XII intact - Psychiatric Psychiatric: cooperative - Labs CBC & Chem 7: 10/17/21 12:19 10/17/21 12:19 Labs: Abnormal lab results 10/16/21 10/16/21 Range/Units 20:08 20:08 Lymph % (Auto) 9.4 L (13.4-35.0) % Lymph # (Auto) 1.0 L (1.2-5.4) K/mm3 Seg Neutrophils % 86.6 H (40.0-70.0) % Seg Neutrophils # 9.2 H (1.8-7.7) K/mm3 Sodium 135 L (137-145) mmol/L Calcium 7.5 L D (8.4-10.2) mg/dL AST 299 H (5-40) units/L ALT 216 H (7-56) units/L Alkaline Phosphatase 163 H (35-129) units/L Total Protein 5.6 L (6.3-8.2) g/dL Albumin 2.7 L (3.9-5) g/dL Medications & Allergies - Medications Allergies/Adverse Reactions: Allergies No Known Allergies Allergy (Verified 10/16/21 19:06) Home Medications: Home Medications Medication Instructions Recorded Confirmed Last Taken Type Ibuprofen [Motrin] 600 mg PO Q6H PRN #20 tablet 01/14/16 10/16/21 Unknown Rx methOCARBAMOL [Robaxin TAB] 500 mg PO BID PRN #14 tab 01/14/16 10/16/21 Unknown Rx Ibuprofen [Motrin] 800 mg PO Q8HR PRN 21 Days #40 10/14/21 Unknown Rx tablet oxyCODONE /ACETAMINOPHEN [Percocet 1 tab PO Q4HR PRN 21 Days #30 tab 10/14/21 Unknown Rx 5/325] Active Medications: Generic Name Dose Route Start Last Admin Trade Name Freq PRN Reason Stop Dose Admin Acetaminophen 500 mg 10/15/21 03:30 Acetaminophen 500 Mg Tab PO Q4H PRN Pain, Mild (1-3) Ferrous Sulfate 325 mg 10/15/21 10:00 10/15/21 10:18 Ferrous Sulfate 325 Mg Tab PO 325 mg QDAY OMKAR Administration Hydralazine HCl 10 mg 10/14/21 11:32 10/16/21 08:29 Hydralazine 20 Mg/1 Ml Inj IV 10 mg Q30MIN PRN Administration Hypertension Lactated Ringer's 1,000 mls @ 125 mls/hr 10/14/21 12:00 10/14/21 21:29 Lactated Ringers IV 125 mls/hr DIRECT OMKAR Administration Lactated Ringer's 1,000 mls @ 125 mls/hr 10/14/21 19:30 10/17/21 05:53 Lactated Ringers IV 125 mls/hr DIRECT OMKAR Administration Oxytocin/Sodium Chloride 30 units in 500 mls @ 40 mls/hr 10/15/21 00:11 Pitocin/Ns 30 Unit/500ml IV TITR OMKAR Protocol Magnesium Sulfate 40 gm in 1,000 mls @ 50 mls/hr 10/15/21 13:00 10/15/21 18:13 Magnesium Sulfate 40gm/1000ml IV Infused DIRECT OMKAR Infusion 2 GM/HR Ibuprofen 600 mg 10/15/21 00:11 10/15/21 02:15 Ibuprofen 600 Mg Tab PO 600 mg Q6H PRN Administration Pain, Mild (1-3) Ibuprofen 800 mg 10/15/21 00:11 10/16/21 05:58 Ibuprofen 800 Mg Tab PO 800 mg Q6H PRN Administration Pain, Moderate (4-6) Labetalol HCl 300 mg 10/17/21 08:30 10/17/21 10:06 Labetalol 100 Mg Tab PO 300 mg Q8HR OMK[facility] Administration Magnesium Hydroxide 30 ml 10/15/21 21:23 10/15/21 21:57 Magnesium Hydroxide (Mom) Oral Liqd Udc PO 30 ml Q12H PRN Administration Constipation Metoclopramide HCl 10 mg 10/16/21 22:55 10/17/21 05:54 Metoclopramide 10 Mg/2 Ml Inj IV 10 mg Q6H PRN Administration Nausea And Vomiting Morphine Sulfate 4 mg 10/15/21 00:11 10/16/21 18:39 Morphine 4 Mg/1 Ml Inj IV 4 mg Q4H PRN Administration Pain , Severe (7-10) Multi-Ingredient Ointment 1 applic 10/15/21 00:11 Lanolin/Zinc/Dimethicone (Lansinoh) 7 Gm TP PRN PRN dryness/cracking Multivitamins/Iron/Calcium 1 each 10/15/21 10:00 10/15/21 10:18 [id number] Fumarate-Folic Acid Vit Tab PO 1 each QDAY OMKAR Administration Naloxone HCl 0.1 mg 10/15/21 00:11 Naloxone 0.4 Mg/1 Ml Inj IV Q2MIN PRN Res Rate </= 8 or 02 SAT < 92% Ondansetron HCl 4 mg 10/16/21 09:53 10/16/21 18:34 Ondansetron 4 Mg/2 Ml Inj IV 4 mg Q8H PRN Administration Nausea And Vomiting Oxycodone/Acetaminophen 2 tab 10/15/21 00:11 10/16/21 05:58 Oxycodone /Acetaminophen 5-325mg Tab PO 2 tab Q6H PRN Administration Pain, Moderate (4-6) Simethicone 80 mg 10/15/21 15:17 10/15/21 15:38 Simethicone 80 Mg Chew Tab PO 80 mg Q6H PRN Administration Gas pain Witch Lyndsay/Glycerin 1 each 10/15/21 00:11 Witch Lyndsay/ Glycerin Pad TP PRN PRN Hemorrhoids/cleansing/soothing
[2021-10-17] MEDS: FERROUS SULFATE 325 MG TAB PO SCH (12:16)
[2021-10-17] MEDS: PRENATAL VIT27-FE FUMARATE-FOLIC ACID VIT TAB PO SCH (12:16)
[2021-10-17 12:23] LABS: Basophils % (Auto) 0.2 % (0.0-1.8); Eosinophils # (Auto) 0.1 K/mm3 (0.0-0.4); Eosinophils % (Auto) 0.7 % (0.0-4.3); Hematocrit 28.2 % (30.3-42.9); Hemoglobin 9.6 gm/dl (10.1-14.3); Lymphocytes # (Auto) 1.3 K/mm3 (1.2-5.4); Mean Corpuscular HGB Conc 34 % (30-34); Mean Corpuscular Volume 84 fl (79-97); Monocytes # (Auto) 0.5 K/mm3 (0.0-0.8); Monocytes % (Auto) 5.5 % (0.0-7.3); Platelet Count 231 K/mm3 (140-440); Red Blood Count 3.35 M/mm3 (3.65-5.03); Red Cell Distribution Width 14.6 % (13.2-15.2)
[2021-10-17 12:46] LABS: Alanine Aminotransferase 151 units/L (7-56); Blood Urea Nitrogen 7 mg/dL (7-17); Calcium 8.1 mg/dL (8.4-10.2); Hemolysis Index 0
[2021-10-17 13:01] LABS: BUN/Creatinine Ratio 10
[2021-10-17] MEDS: PIPERACIL/TAZOBACTA 4.5/NS 100 4.5 GM/100 ML VIAL IV SCH ×2 (13:46→22:10)
[2021-10-17] MEDS: MORPHINE 4 MG/1 ML INJ IV PRN (13:46)
--- NOTE | 2021-10-17 16:02 | Consultation ---
History of Present Illness - Reason for Consult Consult date: 10/17/21 Bleeding - History of Present Illness Patient with a history of emergent secondary to severe preeclampsia. On a CT scan performed 2 days ago, the patient was noted to have some fresh blood within the dependent portion of her pelvis. Her hemoglobin has dropped slightly since admission. On examination, the patient complains of abdominal bloating consistent with her postop ileus. She is only had thin bowel movement since her surgery. Otherwise, the patient is alert with only complaints of postsurgical pain Medications and Allergies Allergies Allergy/AdvReac Type Severity Reaction Status Date / Time No Known Allergies Allergy Verified 10/16/21 19:06 Home Medications Medication Instructions Recorded Confirmed Last Taken Type Ibuprofen [Motrin] 600 mg PO Q6H PRN #20 tablet 01/14/16 10/16/21 Unknown Rx methOCARBAMOL [Robaxin TAB] 500 mg PO BID PRN #14 tab 01/14/16 10/16/21 Unknown Rx Ibuprofen [Motrin] 800 mg PO Q8HR PRN 21 Days #40 10/14/21 Unknown Rx tablet oxyCODONE /ACETAMINOPHEN [Percocet 1 tab PO Q4HR PRN 21 Days #30 tab 10/14/21 Unknown Rx 5/325] Active Meds: Active Medications Acetaminophen (Acetaminophen 500 Mg Tab) 500 mg PO Q4H PRN PRN Reason: Pain, Mild (1-3) Ferrous Sulfate (Ferrous Sulfate 325 Mg Tab) 325 mg PO QDAY MOKAR Last Admin: 10/17/21 12:16 Dose: Not Given Hydralazine HCl (Hydralazine 20 Mg/1 Ml Inj) 10 mg IV Q30MIN PRN PRN Reason: Hypertension Last Admin: 10/16/21 08:29 Dose: 10 mg Lactated Ringer's (Lactated Ringers) 1,000 mls @ 125 mls/hr IV DIRECT OMKAR Last Admin: 10/14/21 21:29 Dose: 125 mls/hr Lactated Ringer's (Lactated Ringers) 1,000 mls @ 125 mls/hr IV DIRECT OMKAR Last Admin: 10/17/21 05:53 Dose: 125 mls/hr Oxytocin/Sodium Chloride (Pitocin/Ns 30 Unit/500ml) 30 units in 500 mls @ 40 mls/hr IV TITR OMKAR; Protocol Magnesium Sulfate (Magnesium Sulfate 40gm/1000ml) 40 gm in 1,000 mls @ 50 mls/ hr IV DIRECT OMKAR Last Infusion: 10/15/21 18:13 Dose: Infused Piperacillin Sod/Tazobactam Sod (Zosyn/Ns 4.5gm/100ml) 4.5 gm in 100 mls @ 200 mls/hr IV Q6H OMKAR; Protocol Stop: 10/18/21 20:29 Last Admin: 10/17/21 13:46 Dose: 200 mls/hr Ibuprofen (Ibuprofen 600 Mg Tab) 600 mg PO Q6H PRN PRN Reason: Pain, Mild (1-3) Last Admin: 10/15/21 02:15 Dose: 600 mg Ibuprofen (Ibuprofen 800 Mg Tab) 800 mg PO Q6H PRN PRN Reason: Pain, Moderate (4-6) Last Admin: 10/16/21 05:58 Dose: 800 mg Labetalol HCl (Labetalol 100 Mg Tab) 300 mg PO Q8HR [facility] Last Admin: 10/17/21 10:06 Dose: 300 mg Magnesium Hydroxide (Magnesium Hydroxide (Mom) Oral Liqd Udc) 30 ml PO Q12H PRN PRN Reason: Constipation Last Admin: 10/15/21 21:57 Dose: 30 ml Metoclopramide HCl (Metoclopramide 10 Mg/2 Ml Inj) 10 mg IV Q6H PRN PRN Reason: Nausea And Vomiting Last Admin: 10/17/21 13:46 Dose: 10 mg Morphine Sulfate (Morphine 4 Mg/1 Ml Inj) 4 mg IV Q4H PRN PRN Reason: Pain , Severe (7-10) Last Admin: 10/17/21 13:46 Dose: 4 mg Multi-Ingredient Ointment (Lanolin/Zinc/Dimethicone (Lansinoh) 7 Gm) 1 applic TP PRN PRN PRN Reason: dryness/cracking Multivitamins/Iron/Calcium ( [id number]-[id number] Fumarate-Folic Acid Vit Tab) 1 each PO QDAY [facility] Last Admin: 10/17/21 12:16 Dose: Not Given Naloxone HCl (Naloxone 0.4 Mg/1 Ml Inj) 0.1 mg IV Q2MIN PRN PRN Reason: Res Rate </= 8 or 02 SAT < 92% Ondansetron HCl (Ondansetron 4 Mg/2 Ml Inj) 4 mg IV Q8H PRN PRN Reason: Nausea And Vomiting Last Admin: 10/16/21 18:34 Dose: 4 mg Oxycodone/Acetaminophen (Oxycodone /Acetaminophen 5-325mg Tab) 2 tab PO Q6H PRN PRN Reason: Pain, Moderate (4-6) Last Admin: 10/16/21 05:58 Dose: 2 tab Simethicone (Simethicone 80 Mg Chew Tab) 80 mg PO Q6H PRN PRN Reason: Gas pain Last Admin: 10/15/21 15:38 Dose: 80 mg Witch Lyndsay/Glycerin (Witch Lyndsay/ Glycerin Pad) 1 each TP PRN PRN PRN Reason: Hemorrhoids/cleansing/soothing Review of Systems All systems: negative Exam - Constitutional Vitals: Temp Pulse Resp BP Pulse Ox 99.8 F H 93 H 18 153/82 96 10/17/21 08:16 10/17/21 08:16 10/17/21 08:16 10/17/21 08:16 10/17/21 08:16 General appearance: Present: no acute distress - EENT Eyes: Present: EOM intact ENT: hearing intact - Neck Neck: Present: supple, normal ROM - Respiratory Respiratory effort: normal - Abdominal General gastrointestinal: Present: deferred Female genitourinary: Present: deferred - Rectal Rectal Exam: deferred - Psychiatric Psychiatric: appropriate mood/affect, cooperative Results - Labs CBC & Chem 7: 10/17/21 12:19 10/17/21 12:19 Labs: Abnormal lab results 10/16/21 10/16/21 10/17/21 Range/Units 20:08 20:08 12:19 RBC 3.35 L (3.65-5.03) M/mm3 Hgb 9.6 L (10.1-14.3) gm/dl Hct 28.2 L (30.3-42.9) % Lymph % (Auto) 9.4 L (13.4-35.0) % Lymph # (Auto) 1.0 L (1.2-5.4) K/mm3 Seg Neutrophils % 86.6 H 78.6 H (40.0-70.0) % Seg Neutrophils # 9.2 H (1.8-7.7) K/mm3 Sodium 135 L (137-145) mmol/L Calcium 7.5 L D (8.4-10.2) mg/dL AST 299 H (5-40) units/L ALT 216 H (7-56) units/L Alkaline Phosphatase 163 H (35-129) units/L Total Protein 5.6 L (6.3-8.2) g/dL Albumin 2.7 L (3.9-5) g/dL 10/17/21 Range/Units 12:19 RBC (3.65-5.03) M/mm3 Hgb (10.1-14.3) gm/dl Hct (30.3-42.9) % Lymph % (Auto) (13.4-35.0) % Lymph # (Auto) (1.2-5.4) K/mm3 Seg Neutrophils % (40.0-70.0) % Seg Neutrophils # (1.8-7.7) K/mm3 Sodium (137-145) mmol/L Calcium 8.1 L (8.4-10.2) mg/dL AST 164 H (5-40) units/L ALT 151 H (7-56) units/L Alkaline Phosphatase 160 H (35-129) units/L Total Protein 5.3 L (6.3-8.2) g/dL Albumin 3.0 L (3.9-5) g/dL Assessment and Plan Patient status post emergent with a slight decline in her hemoglobin. She did experience some minor blood loss during her . Additionally, a component of the patient's decrease in hemoglobin may do delusional. On CT scan performed 2 days ago there was noted to be what appeared to be fresh clot in the dependent portion of her pelvis. The patient is currently stable. We will obtain a CT of the abdomen and pelvis and both arterial and venous phases to determine if there is extravasation amenable to embolization.
--- NOTE | 2021-10-17 18:29 | Progress Note ---
Subjective Date of service: 10/17/21 Principal diagnosis: POD#3 Repeat C/S with ileus, severe preeclampsia with high LFTs now Interval history: As by RN to place IV access. She tried but was unsuccessful. Skin was cleaned with alcohol cleanser#20g Angiocath placed in Right anticubital fossa. Dressing applied. Tolerated placement well. Objective - Constitutional Vitals: Vital Signs - 12hr 10/17/21 10/17/21 08:16 12:00 Temperature 99.8 F H Pulse Rate 93 H Respiratory 18 Rate Blood Pressure 153/82 [Left] O2 Sat by Pulse 96 Oximetry O2 Sat by Pulse 96 Oximetry [ Bilateral Throughout] - Labs CBC & Chem 7: 10/17/21 12:19 10/17/21 12:19 Labs: Abnormal lab results 10/16/21 10/16/21 10/17/21 Range/Units 20:08 20:08 12:19 RBC 3.35 L (3.65-5.03) M/mm3 Hgb 9.6 L (10.1-14.3) gm/dl Hct 28.2 L (30.3-42.9) % Lymph % (Auto) 9.4 L (13.4-35.0) % Lymph # (Auto) 1.0 L (1.2-5.4) K/mm3 Seg Neutrophils % 86.6 H 78.6 H (40.0-70.0) % Seg Neutrophils # 9.2 H (1.8-7.7) K/mm3 Sodium 135 L (137-145) mmol/L Calcium 7.5 L D (8.4-10.2) mg/dL AST 299 H (5-40) units/L ALT 216 H (7-56) units/L Alkaline Phosphatase 163 H (35-129) units/L Total Protein 5.6 L (6.3-8.2) g/dL Albumin 2.7 L (3.9-5) g/dL 10/17/21 Range/Units 12:19 RBC (3.65-5.03) M/mm3 Hgb (10.1-14.3) gm/dl Hct (30.3-42.9) % Lymph % (Auto) (13.4-35.0) % Lymph # (Auto) (1.2-5.4) K/mm3 Seg Neutrophils % (40.0-70.0) % Seg Neutrophils # (1.8-7.7) K/mm3 Sodium (137-145) mmol/L Calcium 8.1 L (8.4-10.2) mg/dL AST 164 H (5-40) units/L ALT 151 H (7-56) units/L Alkaline Phosphatase 160 H (35-129) units/L Total Protein 5.3 L (6.3-8.2) g/dL Albumin 3.0 L (3.9-5) g/dL
--- NOTE | 2021-10-17 21:42 | Cat Scan Report ---
CTA ABDOMEN AND PELVIS WITHOUT AND WITH IV CONTRAST INDICATION: Decrease in hemoglobin following . TECHNIQUE: Axial CT images were obtained through the abdomen and pelvis before and after after injection of IV c ontrast. 3 plane MIP reconstructions were produced. All CT scans at this location are performed using CT dose reduction for ALARA by means of automated exposure control. COMPARISON: Noncontrast CT 2 days prior. FINDINGS: Aorta: No acute abnormality. Renal arteries: No acute abnormality. Celiac artery: No acute abnormality. Superior mesenteric artery: No acute abnormality. Inferior mesenteric artery: No acute abnormality. Right iliac arteries: No acute abnormality. Left iliac arteries: No acute abnormality. Additional Findings: There is trace free fluid within the abdomen/pelvis. This is hyperdense within t he periuterine pelvis. uterus remains enlarged.. Skeletal Structures: No acute osseous abnormality. IMPRESSION: 1. Mild hemoperitoneum. This is similar to the prior exam from 2 days ago. No active arterial extrava sation is identified. It would be difficult to exclude slow venous extravasation. 2. Enlarged, uterus. Signer Name: Petey Hamilton MD Signed: 10/17/2021 9:38 PM Workstation Name: [id number]
[2021-10-17] MEDS: MORPHINE 2 MG/1 ML INJ IV PRN (22:11)
[2021-10-18] MEDS: PIPERACIL/TAZOBACTA 4.5/NS 100 4.5 GM/100 ML VIAL IV SCH ×4 (03:54→23:11)
[2021-10-18] MEDS: MORPHINE 2 MG/1 ML INJ IV PRN (03:54)
--- NOTE | 2021-10-18 09:57 | Progress Note ---
Assessment and Plan POD#4 C/S with ileus slowly resolving, severe preeclampsia with elevated LFTs 1. Continue zosyn antibiotic for another 24hrs 2. Advance diet as tolerated 3. Awaiting daily CBC and LFTs 4. Plan of care discussed and pt agrees. Nurse notified Subjective Date of service: 10/18/21 Principal diagnosis: POD#4 Repeat C/S, ileus resoloving, severe preeclampsia decreasing LFTs Interval history: pt states that she had another BM this morning and a lot of gas. pt states she feels much better and wants to eat food. Vag bleed small. pt had CT last even ing and was seen the IR Dr. Cox. Pain controlled with morphine prn and pt receiving IVF and IV antibiotics. Pt also states that she got to see her baby yesterday Objective - Constitutional Vitals: Vital Signs - 12hr 10/17/21 10/17/21 10/18/21 22:11 22:41 01:11 Temperature 98.8 F Pulse Rate 89 Respiratory 20 18 16 Rate Blood Pressure 152/81 O2 Sat by Pulse 96 Oximetry O2 Sat by Pulse Oximetry [ Bilateral Throughout] 10/18/21 10/18/21 10/18/21 03:54 03:55 04:24 Temperature Pulse Rate 84 Respiratory 18 18 18 Rate Blood Pressure 160/91 O2 Sat by Pulse 96 Oximetry O2 Sat by Pulse Oximetry [ Bilateral Throughout] 10/18/21 10/18/21 07:36 09:08 Temperature 98.2 F Pulse Rate 88 Respiratory 18 Rate Blood Pressure 140/80 O2 Sat by Pulse 95 Oximetry O2 Sat by Pulse 97 Oximetry [ Bilateral Throughout] General appearance: Present: no acute distress - Neck Neck: normal ROM - Respiratory Respiratory effort: normal - Breasts Breasts: normal - Cardiovascular Rhythm: regular Extremities: No edema - Gastrointestinal General gastrointestinal: Present: soft, non-tender, hypoactive bowel sounds (but improved compared to yesterday), other (Incision remains clean, dry and intact with steristrips ) - Genitourinary Female genitourinary: other (lochia small) - Neurologic Neurologic: moves all extremities - Psychiatric Psychiatric: cooperative - Labs CBC & Chem 7: 10/17/21 12:19 10/17/21 12:19 Labs: Abnormal lab results 10/17/21 10/17/21 Range/Units 12:19 12:19 RBC 3.35 L (3.65-5.03) M/mm3 Hgb 9.6 L (10.1-14.3) gm/dl Hct 28.2 L (30.3-42.9) % Seg Neutrophils % 78.6 H (40.0-70.0) % Calcium 8.1 L (8.4-10.2) mg/dL AST 164 H (5-40) units/L ALT 151 H (7-56) units/L Alkaline Phosphatase 160 H (35-129) units/L Total Protein 5.3 L (6.3-8.2) g/dL Albumin 3.0 L (3.9-5) g/dL Medications & Allergies - Medications Allergies/Adverse Reactions: Allergies No Known Allergies Allergy (Verified 10/16/21 19:06) Home Medications: Home Medications Medication Instructions Recorded Confirmed Last Taken Type Ibuprofen [Motrin] 600 mg PO Q6H PRN #20 tablet 01/14/16 10/16/21 Unknown Rx methOCARBAMOL [Robaxin TAB] 500 mg PO BID PRN #14 tab 01/14/16 10/16/21 Unknown Rx Ibuprofen [Motrin] 800 mg PO Q8HR PRN 21 Days #40 10/14/21 Unknown Rx tablet oxyCODONE /ACETAMINOPHEN [Percocet 1 tab PO Q4HR PRN 21 Days #30 tab 10/14/21 Unknown Rx 5/325] Active Medications: Generic Name Dose Route Start Last Admin Trade Name Freq PRN Reason Stop Dose Admin Acetaminophen 500 mg 10/15/21 03:30 Acetaminophen 500 Mg Tab PO Q4H PRN Pain, Mild (1-3) Ferrous Sulfate 325 mg 10/15/21 10:00 10/17/21 12:16 Ferrous Sulfate 325 Mg Tab PO Not Given QDAY OMKAR Hydralazine HCl 10 mg 10/14/21 11:32 10/16/21 08:29 Hydralazine 20 Mg/1 Ml Inj IV 10 mg Q30MIN PRN Administration Hypertension Lactated Ringer's 1,000 mls @ 125 mls/hr 10/14/21 12:00 10/14/21 21:29 Lactated Ringers IV 125 mls/hr DIRECT OMKAR Administration Lactated Ringer's 1,000 mls @ 125 mls/hr 10/14/21 19:30 10/17/21 05:53 Lactated Ringers IV 125 mls/hr DIRECT OMKAR Administration Oxytocin/Sodium Chloride 30 units in 500 mls @ 40 mls/hr 10/15/21 00:11 Pitocin/Ns 30 Unit/500ml IV TITR OMKAR Protocol Magnesium Sulfate 40 gm in 1,000 mls @ 50 mls/hr 10/15/21 13:00 10/15/21 18:13 Magnesium Sulfate 40gm/1000ml IV Infused DIRECT OMKAR Infusion 2 GM/HR Piperacillin Sod/Tazobactam Sod 4.5 gm in 100 mls @ 200 mls/hr 10/17/21 14:00 10/18/21 03:54 Zosyn/Ns 4.5gm/100ml IV 10/18/21 20:29 200 mls/hr Q6H OMKAR Administration Protocol Ibuprofen 600 mg 10/15/21 00:11 10/15/21 02:15 Ibuprofen 600 Mg Tab PO 600 mg Q6H PRN Administration Pain, Mild (1-3) Ibuprofen 800 mg 10/15/21 00:11 10/16/21 05:58 Ibuprofen 800 Mg Tab PO 800 mg Q6H PRN Administration Pain, Moderate (4-6) Labetalol HCl 300 mg 10/17/21 08:30 10/18/21 03:55 Labetalol 100 Mg Tab PO 300 mg Q8HR OMKAR Administration Magnesium Hydroxide 30 ml 10/15/21 21:23 10/15/21 21:57 Magnesium Hydroxide (Mom) Oral Liqd Udc PO 30 ml Q12H PRN Administration Constipation Metoclopramide HCl 10 mg 10/16/21 22:55 10/17/21 13:46 Metoclopramide 10 Mg/2 Ml Inj IV 10 mg Q6H PRN Administration Nausea And Vomiting Morphine Sulfate 4 mg 10/15/21 00:11 10/17/21 13:46 Morphine 4 Mg/1 Ml Inj IV 4 mg Q4H PRN Administration Pain , Severe (7-10) Morphine Sulfate 2 mg 10/17/21 21:54 10/18/21 03:54 Morphine 2 Mg/1 Ml Inj IV 2 mg Q4H PRN Administration Pain, Moderate (4-6) Multi-Ingredient Ointment 1 applic 10/15/21 00:11 Lanolin/Zinc/Dimethicone (Lansinoh) 7 Gm TP PRN PRN dryness/cracking Multivitamins/Iron/Calcium 1 each 10/15/21 10:00 10/17/21 12:16 [id number] Fumarate-Folic Acid Vit Tab PO Not Given QDAY OMKAR Naloxone HCl 0.1 mg 10/15/21 00:11 Naloxone 0.4 Mg/1 Ml Inj IV Q2MIN PRN Res Rate </= 8 or 02 SAT < 92% Ondansetron HCl 4 mg 10/16/21 09:53 10/16/21 18:34 Ondansetron 4 Mg/2 Ml Inj IV 4 mg Q8H PRN Administration Nausea And Vomiting Oxycodone/Acetaminophen 2 tab 10/15/21 00:11 10/16/21 05:58 Oxycodone /Acetaminophen 5-325mg Tab PO 2 tab Q6H PRN Administration Pain, Moderate (4-6) Simethicone 80 mg 10/15/21 15:17 10/15/21 15:38 Simethicone 80 Mg Chew Tab PO 80 mg Q6H PRN Administration Gas pain Witch Lyndsay/Glycerin 1 each 10/15/21 00:11 Witch Lyndsay/ Glycerin Pad TP PRN PRN Hemorrhoids/cleansing/soothing
[2021-10-18] MEDS: PRENATAL VIT27-FE FUMARATE-FOLIC ACID VIT TAB PO SCH (10:01)
[2021-10-18] MEDS: FERROUS SULFATE 325 MG TAB PO SCH (10:01)
[2021-10-18] MEDS: hydrALAZINE 20 MG/1 ML INJ IV PRN (11:00)
[2021-10-18] MEDS: oxyCODONE /ACETAMINOPHEN 5-325MG TAB PO PRN (11:03)
[2021-10-18] MEDS: amLODIPine 10 MG TAB PO SCH (12:25)
[2021-10-18 14:42] LABS: Basophils % (Auto) 0.4 % (0.0-1.8); Eosinophils # (Auto) 0.1 K/mm3 (0.0-0.4); Eosinophils % (Auto) 1.6 % (0.0-4.3); Hematocrit 25.9 % (30.3-42.9); Lymphocytes # (Auto) 1.4 K/mm3 (1.2-5.4); Lymphocytes % (Auto) 17.5 % (13.4-35.0); Mean Corpuscular HGB Conc 35 % (30-34); Mean Corpuscular Volume 85 fl (79-97); Monocytes # (Auto) 0.5 K/mm3 (0.0-0.8); Monocytes % (Auto) 5.8 % (0.0-7.3); Platelet Count 249 K/mm3 (140-440); Red Blood Count 3.04 M/mm3 (3.65-5.03); Red Cell Distribution Width 14.6 % (13.2-15.2)
[2021-10-18 15:05] LABS: Alanine Aminotransferase 105 units/L (7-56); Albumin 2.7 g/dL (3.9-5); Blood Urea Nitrogen 7 mg/dL (7-17); Calcium 8.2 mg/dL (8.4-10.2); Hemolysis Index 1
[2021-10-18 15:09] LABS: BUN/Creatinine Ratio 10
[2021-10-18] MEDS: SIMETHICONE 80 MG CHEW TAB PO PRN (17:09)
--- NOTE | 2021-10-18 17:39 | Event Note ---
Date: 10/18/21 CT scan reviewed and radiologist report noted as well. No sign of active bleeding on either arterial or delayed phases. The patient likely had a small bleed post surgery that resolved and her H/H are now equilibrating from both her and her bleed.
[2021-10-18] MEDS: IBUPROFEN 800 MG TAB PO PRN (21:11)
[2021-10-19] MEDS: IBUPROFEN 800 MG TAB PO PRN ×2 (06:27→12:00)
[2021-10-19] MEDS ORDERED: oxyCODONE /ACETAMINOPHEN 5-325MG TAB PO PRN (08:27)
--- NOTE | 2021-10-19 09:05 | Progress Note ---
Assessment and Plan A: /postop day 5 S/P repeat section. Resolving postop ileus. Preeclampsia with severe features (s/p magnesium sulfate); resolving elevation of LFTs. BPs controlled with labetalol 300 mg po every 8 hours and amlodipine 10 mg po daily. Anemia. P: Continue amlodipine and labetalol. Continue iron supplementation. Advised patient to ambulate and drink warm liquids. Repeat CBC and LFTs this afternoon. Continue routine /postop care. Subjective - Subjective Date of service: 10/19/21 Principal diagnosis: POD#5 Repeat C/S, ileus resoloving, severe preeclampsia decreasing LFTs Interval history: Feeling better. Passing gas. Reports feeling of abdominal bloating but states this is somewhat better today than yesterday. Patient reports: appetite normal, voiding normally, pain well controlled, flatus, ambulating normally, no dizzy ambulation, no nauseated : in NICU, other (pumping breastmilk) Objective - Vital Signs Latest vital signs: Vital Signs Temp Pulse Resp BP BP Pulse Ox Pulse Ox 10/19/21 06:27 20 10/19/21 05:22 99.0 F 92 H 20 147/86 93 10/19/21 00:53 98.8 F 94 H 20 120/66 94 10/18/21 23:34 76 143/80 10/18/21 21:11 18 10/18/21 21:01 98.4 F 81 20 153/85 97 10/18/21 19:30 99 10/18/21 16:13 81 159/86 10/18/21 15:10 98.5 F 93 H 20 151/85 99 10/18/21 12:25 86 132/71 10/18/21 12:14 98.2 F 90 20 141/78 99 10/18/21 11:00 76 172/94 10/18/21 10:55 77 172/94 10/18/21 09:08 97 Intake and Output 10/18/21 10/19/21 10/19/21 23:59 07:59 15:59 Intake Total 340 360 Balance 340 360 Intake: IV 100 ZOSYN/NS 4.5GM/100ML 4.5 100 gm In 100 ml @ 200 mls/hr IV Q6H [facility] Rx#:[id number] Oral 240 120 Intake, Free Water 240 Other: Total, Intake Amount 240 120 # Voids Void 1 2 - Exam Cardiovascular: Present: Regular rate Abdomen: Present: normal appearance, soft, normal bowel sounds. Absent: distention, tenderness, guarding, rigidity Uterus: Present: firm, fundal height below umbilicus (fundus firm and midline at 2 FB below umbilicus) Extremities: Absent: tenderness, edema Incision: Present: dry, intact - Labs Labs: Abnormal lab results 10/18/21 10/18/21 Range/Units 13:23 13:23 RBC 3.04 L (3.65-5.03) M/mm3 Hgb 9.0 L (10.1-14.3) gm/dl Hct 25.9 L (30.3-42.9) % MCHC 35 H (30-34) % Seg Neutrophils % 74.7 H (40.0-70.0) % Sodium 131 L (137-145) mmol/L Carbon Dioxide 20 L (22-30) mmol/L Calcium 8.2 L (8.4-10.2) mg/dL AST 81 H (5-40) units/L ALT 105 H (7-56) units/L Alkaline Phosphatase 144 H (35-129) units/L Total Protein 5.4 L (6.3-8.2) g/dL Albumin 2.7 L (3.9-5) g/dL
[2021-10-19] MEDS: amLODIPine 10 MG TAB PO SCH (09:13)
[2021-10-19] MEDS: PRENATAL VIT27-FE FUMARATE-FOLIC ACID VIT TAB PO SCH (09:13)
[2021-10-19] MEDS: FERROUS SULFATE 325 MG TAB PO SCH (09:13)
[2021-10-19 14:24] LABS: Alanine Aminotransferase 83 units/L (7-56); Albumin 3.3 g/dL (3.9-5); Blood Urea Nitrogen 7 mg/dL (7-17); Calcium 8.5 mg/dL (8.4-10.2); Hemolysis Index 1
[2021-10-19 14:25] LABS: BUN/Creatinine Ratio 12
[2021-10-19 14:26] LABS: Hematocrit 28.8 % (30.3-42.9); Hemoglobin 9.7 gm/dl (10.1-14.3); Mean Corpuscular HGB Conc 34 % (30-34); Mean Corpuscular Volume 85 fl (79-97); Platelet Count 310 K/mm3 (140-440); Red Blood Count 3.39 M/mm3 (3.65-5.03); Red Cell Distribution Width 14.7 % (13.2-15.2)
[2021-10-19 15:49] LABS: Basophils # (Auto) 0.2 K/mm3 (0.0-0.1); Basophils % (Auto) 1.8 % (0.0-1.8); Eosinophils # (Auto) 0.2 K/mm3 (0.0-0.4); Eosinophils % (Auto) 2.3 % (0.0-4.3); Monocytes # (Auto) 0.5 K/mm3 (0.0-0.8); Monocytes % (Auto) 5.6 % (0.0-7.3)
--- NOTE | 2021-10-19 16:38 | Event Note ---
Date: 10/19/21 Patient reports dizziness for past hour or two. States she was trying to walk to NICU to see her baby and felt dizzy and had to lie down. Also reports blurred vision bilaterally. Denies headache, chest pain, shortness of breath, leg pain, or heavy bleeding. States she feels tired. Patient is taking Labetalol and amlodipine. Last 2 blood pressures: 120/74 and 117/65. Consulted with Dr. Lyles re: patient's complaints/symptoms of dizziness and blurred vision. Amlodipine dose decreased from 10 mg daily to [address] Barrientos's order. hospitalist consult ordered.
--- NOTE | 2021-10-19 20:36 | Consultation ---
History of Present Illness - Reason for Consult Consult date: 10/19/21 Medical management Requesting physician: DEBBIE CORRAL - History of Present Illness Patient reports dizziness for past hour or two. States she was trying to walk to NICU to see her baby and felt dizzy and had to lie down. Also reports blurred vision bilaterally. Denies headache, chest pain, shortness of breath, leg pain, or heavy bleeding. States she feels tired. Patient is taking Labetalol and amlodipine. Last 2 blood pressures: 120/74 and 117/65. Amlodipine dose decreased from 10 mg daily to [address] Barrientos's order. Medications and Allergies Allergies Allergy/AdvReac Type Severity Reaction Status Date / Time No Known Allergies Allergy Verified 10/16/21 19:06 Home Medications Medication Instructions Recorded Confirmed Last Taken Type Ibuprofen [Motrin] 600 mg PO Q6H PRN #20 tablet 01/14/16 10/16/21 Unknown Rx methOCARBAMOL [Robaxin TAB] 500 mg PO BID PRN #14 tab 01/14/16 10/16/21 Unknown Rx Ibuprofen [Motrin] 800 mg PO Q8HR PRN 21 Days #40 10/14/21 Unknown Rx tablet oxyCODONE /ACETAMINOPHEN [Percocet 1 tab PO Q4HR PRN 21 Days #30 tab 10/14/21 Unknown Rx 5/325] Active Meds: Active Medications Acetaminophen (Acetaminophen 500 Mg Tab) 500 mg PO Q4H PRN PRN Reason: Pain, Mild (1-3) Amlodipine Besylate (Amlodipine 5 Mg Tab) 5 mg PO QDAY OMKAR Ferrous Sulfate (Ferrous Sulfate 325 Mg Tab) 325 mg PO QDAY OMKAR Last Admin: 10/19/21 09:13 Dose: 325 mg Hydralazine HCl (Hydralazine 20 Mg/1 Ml Inj) 10 mg IV Q30MIN PRN PRN Reason: Hypertension Last Admin: 10/18/21 11:00 Dose: 10 mg Lactated Ringer's (Lactated Ringers) 1,000 mls @ 125 mls/hr IV DIRECT OMKAR Last Admin: 10/14/21 21:29 Dose: 125 mls/hr Lactated Ringer's (Lactated Ringers) 1,000 mls @ 125 mls/hr IV DIRECT OMKAR Last Admin: 10/17/21 05:53 Dose: 125 mls/hr Oxytocin/Sodium Chloride (Pitocin/Ns 30 Unit/500ml) 30 units in 500 mls @ 40 mls/hr IV TITR OMKAR; Protocol Magnesium Sulfate (Magnesium Sulfate 40gm/1000ml) 40 gm in 1,000 mls @ 50 mls/hr IV DIRECT OMKAR Last Infusion: 10/15/21 18:13 Dose: Infused Ibuprofen (Ibuprofen 600 Mg Tab) 600 mg PO Q6H PRN PRN Reason: Pain, Mild (1-3) Last Admin: 10/15/21 02:15 Dose: 600 mg Ibuprofen (Ibuprofen 800 Mg Tab) 800 mg PO Q6H PRN PRN Reason: Pain, Moderate (4-6) Last Admin: 10/19/21 12:00 Dose: 800 mg Labetalol HCl (Labetalol 100 Mg Tab) 300 mg PO Q8HR OMKAR Last Admin: 10/19/21 15:40 Dose: 300 mg Magnesium Hydroxide (Magnesium Hydroxide (Mom) Oral Liqd Udc) 30 ml PO Q12H PRN PRN Reason: Constipation Last Admin: 10/15/21 21:57 Dose: 30 ml Metoclopramide HCl (Metoclopramide 10 Mg/2 Ml Inj) 10 mg IV Q6H PRN PRN Reason: Nausea And Vomiting Last Admin: 10/17/21 13:46 Dose: 10 mg Morphine Sulfate (Morphine 4 Mg/1 Ml Inj) 4 mg IV Q4H PRN PRN Reason: Pain , Severe (7-10) Last Admin: 10/17/21 13:46 Dose: 4 mg Morphine Sulfate (Morphine 2 Mg/1 Ml Inj) 2 mg IV Q4H PRN PRN Reason: Pain, Moderate (4-6) Last Admin: 10/18/21 03:54 Dose: 2 mg Multi-Ingredient Ointment (Lanolin/Zinc/Dimethicone (Lansinoh) 7 Gm) 1 applic TP PRN PRN PRN Reason: dryness/cracking Multivitamins/Iron/Calcium ( [id number]-[id number] Fumarate-Folic Acid Vit Tab) 1 each PO QDAY OMKAR Last Admin: 10/19/21 09:13 Dose: 1 each Naloxone HCl (Naloxone 0.4 Mg/1 Ml Inj) 0.1 mg IV Q2MIN PRN PRN Reason: Res Rate </= 8 or 02 SAT < 92% Ondansetron HCl (Ondansetron 4 Mg/2 Ml Inj) 4 mg IV Q8H PRN PRN Reason: Nausea And Vomiting Last Admin: 10/16/21 18:34 Dose: 4 mg Oxycodone/Acetaminophen (Oxycodone /Acetaminophen 5-325mg Tab) 2 tab PO Q6H PRN PRN Reason: Pain, Moderate (4-6) Last Admin: 10/18/21 11:03 Dose: 2 tab Oxycodone/Acetaminophen (Oxycodone /Acetaminophen 5-325mg Tab) 1 tab PO Q6H PRN PRN Reason: Pain, Moderate (4-6) Last Admin: 10/19/21 08:35 Dose: 1 tab Simethicone (Simethicone 80 Mg Chew Tab) 80 mg PO Q6H PRN PRN Reason: Gas pain Last Admin: 10/18/21 17:09 Dose: 80 mg Witch Lyndsay/Glycerin (Witch Lyndsay/ Glycerin Pad) 1 each TP PRN PRN PRN Reason: Hemorrhoids/cleansing/soothing Exam - Constitutional Vitals: Temp Pulse Resp BP Pulse Ox 98.3 F 97 H 18 117/65 98 10/19/21 15:42 10/19/21 15:42 10/19/21 15:42 10/19/21 15:42 10/19/21 20:15 General appearance: Present: no acute distress, well-nourished - EENT Eyes: Present: PERRL ENT: hearing intact, clear oral mucosa - Neck Neck: Present: supple, normal ROM - Respiratory Respiratory effort: normal Respiratory: bilateral: CTA - Cardiovascular Heart rate: 78 Rhythm: regular Heart Sounds: Present: S1 & S2. Absent: rub, click - Extremities Extremities: pulses symmetrical, No edema Peripheral Pulses: within normal limits - Abdominal General gastrointestinal: Present: soft, non-tender, non-distended, normal bowel sounds Female genitourinary: Present: normal - Rectal Rectal Exam: deferred - Integumentary Integumentary: Present: clear, warm, dry - Musculoskeletal Musculoskeletal: gait normal, strength equal bilaterally - Psychiatric Psychiatric: appropriate mood/affect, intact judgment & insight - Neurologic Neurologic: CNII-XII intact, moves all extremities Results - Labs CBC & Chem 7: 10/19/21 13:53 10/19/21 13:53 Labs: Abnormal lab results 10/19/21 10/19/21 Range/Units 13:53 13:53 RBC 3.39 L (3.65-5.03) M/mm3 Hgb 9.7 L (10.1-14.3) gm/dl Hct 28.8 L (30.3-42.9) % Lymph % (Auto) 11.0 L (13.4-35.0) % Lymph # (Auto) 1.0 L (1.2-5.4) K/mm3 Baso # (Auto) 0.2 H (0.0-0.1) K/mm3 Seg Neutrophils % 79.3 H (40.0-70.0) % Sodium 136 L (137-145) mmol/L Glucose 137 H (65-100) mg/dL AST 53 H (5-40) units/L ALT 83 H (7-56) units/L Alkaline Phosphatase 172 H (35-129) units/L Albumin 3.3 L (3.9-5) g/dL Assessment and Plan - Patient Problems (1) Orthostatic hypotension Current Visit: Yes Status: Acute Plan to address problem: Patient is orthostatic and felt dizzy and blurred vision IV fluids for now We will recheck tomorrow No neurologic deficits
[2021-10-20] MEDS: IBUPROFEN 600 MG TAB PO PRN ×2 (00:29→10:16)
[2021-10-20] MEDS: IBUPROFEN 800 MG TAB PO PRN ×2 (05:31→17:22)
[2021-10-20] MEDS ORDERED: amLODIPine 5 MG TAB PO SCH (10:00)
[2021-10-20] MEDS: PRENATAL VIT27-FE FUMARATE-FOLIC ACID VIT TAB PO SCH (10:16)
[2021-10-20] MEDS: FERROUS SULFATE 325 MG TAB PO SCH (10:18)
[2021-10-20 19:39] VITALS: BP 138/72
== END 2021-10-20 20:45 | disposition home or self-care (01) | DRG 786 ==
LOC: ED 10:46 → LD 11:27 → UNDOADMIN 11:27 → LD 11:32 → OB 10-15 20:34 → UNDODISIN 10-20 10:05
PROVIDERS: ADMIT Obstetrics & Gynecology; ATTEND Obstetrics & Gynecology
PROC: 10D00Z1 Extraction of Products of Conception, Low, Open Approach (ICD-10-PCS; principal; 2021-10-14)
DX: O36.5930 Maternal care for other known or suspected poor fetal growth, third trimester, not applicable or unspecified (principal); O60.14X0 Preterm labor third trimester with preterm delivery third trimester, not applicable or unspecified; O13.3 Gestational [pregnancy-induced] hypertension without significant proteinuria, third trimester; Z3A.32 32 weeks gestation of pregnancy; O34.211 Maternal care for low transverse scar from previous cesarean delivery; Z37.0 Single live birth; Z20.822 Contact with and (suspected) exposure to COVID-19; O13.4 Gestational [pregnancy-induced] hypertension without significant proteinuria, complicating childbirth; O76 Abnormality in fetal heart rate and rhythm complicating labor and delivery; O34.13 Maternal care for benign tumor of corpus uteri, third trimester; O99.63 Diseases of the digestive system complicating the puerperium; O90.81 Anemia of the puerperium; O26.53 Maternal hypotension syndrome, third trimester; O14.14 Severe pre-eclampsia complicating childbirth
CPT/HCPCS: 36415; 74018; 74174; 74176; 80048; 80053; 80076; 81001; 82565; 83735; 84550; 85007; 85025; 85027; 85610; 85730; 86592; 86850; 86900; 86901; 88307; 99211; G0378; J3490; J7120; J7121; G0463; J0330; J0360; J0690; J0702; J1100; J1170; J1885; J2270; J2370; J2405; J2543; J2590; J2704; J2765; J3475; Q9967; U0003

== ENCOUNTER 2021-10-24 23:50 | Emergency (ER) | payer MEDICAID, OTHER ==
[2021-10-25] MEDS ORDERED: METOPROLOL TARTRATE 5 MG/5 ML INJ IV ONE (00:12)
[2021-10-25 00:39] LABS: Basophils # (Auto) 0.1 K/mm3 (0.0-0.1); Basophils % (Auto) 1.3 % (0.0-1.8); Eosinophils # (Auto) 0.2 K/mm3 (0.0-0.4); Eosinophils % (Auto) 2.5 % (0.0-4.3); Hematocrit 32.9 % (30.3-42.9); Hemoglobin 11.6 gm/dl (10.1-14.3); Lymphocytes # (Auto) 1.8 K/mm3 (1.2-5.4); Lymphocytes % (Auto) 23.9 % (13.4-35.0); Mean Corpuscular HGB Conc 35 % (30-34); Mean Corpuscular Volume 86 fl (79-97); Monocytes # (Auto) 0.6 K/mm3 (0.0-0.8); Monocytes % (Auto) 7.8 % (0.0-7.3); Platelet Count 516 K/mm3 (140-440); Red Blood Count 3.85 M/mm3 (3.65-5.03); Red Cell Distribution Width 15.3 % (13.2-15.2)
[2021-10-25 00:57] LABS: INR 0.88 (0.87-1.13)
[2021-10-25 01:09] LABS: Alanine Aminotransferase 22 units/L (7-56); Albumin 3.8 g/dL (3.9-5); BUN/Creatinine Ratio 14; Blood Urea Nitrogen 14 mg/dL (7-17); Calcium 9.1 mg/dL (8.4-10.2); Hemolysis Index 22
[2021-10-25 02:39] VITALS: BP 137/86
--- NOTE | 2021-10-25 03:04 | Emergency Department Report ---
ED General Adult HPI - General Chief complaint: High BP Stated complaint: highblood pressure with chest pain. Time Seen by Provider: 10/25/21 00:03 Source: EMS Mode of arrival: Stretcher Limitations: No Limitations - History of Present Illness Initial comments: PT RECENTLY DISCHARGED FROM OB AFTER DELIVERING 2 WEEKS EARLY FOR PREECLAMPSIA. PT HAS BEEN CHECKING HER BP OFTEN TODAY, BP KEEPS GOING UP AND SHE HAS DEVELOPED CHESTPAIN. -: Gradual, days(s) Radiation: non-radiation Severity scale (0 -10): 0 Consistency: intermittent Improves with: none - Related Data Previous Rx's Medication Instructions Recorded Last Taken Type Ibuprofen [Motrin] 600 mg PO Q6H PRN #20 tablet 01/14/16 Unknown Rx methOCARBAMOL [Robaxin TAB] 500 mg PO BID PRN #14 tab 01/14/16 Unknown Rx Ibuprofen [Motrin] 800 mg PO Q8HR PRN 21 Days #40 10/14/21 Unknown Rx tablet oxyCODONE /ACETAMINOPHEN [Percocet 1 tab PO Q4HR PRN 21 Days #30 tab 10/14/21 Unknown Rx 5/325] atenoloL [Tenormin] 25 mg PO DAILY #30 tab 10/25/21 Unknown Rx Allergies Allergy/AdvReac Type Severity Reaction Status Date / Time No Known Allergies Allergy Verified 10/16/21 19:06 ED Review of Systems ROS: Stated complaint: highblood pressure with chest pain. Other details as noted in HPI Constitutional: denies: chills, fever Eyes: denies: eye pain, eye discharge, vision change ENT: denies: ear pain, throat pain Respiratory: denies: cough, shortness of breath, wheezing Cardiovascular: denies: chest pain, palpitations Endocrine: no symptoms reported Gastrointestinal: denies: abdominal pain, nausea, diarrhea Genitourinary: denies: urgency, dysuria, discharge Musculoskeletal: denies: back pain, joint swelling, arthralgia Skin: denies: rash, lesions Neurological: denies: headache, weakness, paresthesias Psychiatric: denies: anxiety, depression Hematological/Lymphatic: denies: easy bleeding, easy bruising ED Past Medical Hx - Past Medical History Previous Medical History?: Yes Hx Hypertension: Yes (severe pre eclampsia) Hx Heart Attack/AMI: No Hx Diabetes: No Hx Deep Vein Thrombosis: No Hx Liver Disease: No Hx Renal Disease: No Hx Sickle Cell Disease: No Hx Seizures: No Hx Asthma: No Hx HIV: No Additional medical history: Pre eclampsia - Surgical History Additional Surgical History: X2 - Social History Smoking Status: Never Smoker Substance Use Type: None - Medications Home Medications: Home Medications Medication Instructions Recorded Confirmed Last Taken Type Ibuprofen [Motrin] 600 mg PO Q6H PRN #20 tablet 01/14/16 10/16/21 Unknown Rx methOCARBAMOL [Robaxin TAB] 500 mg PO BID PRN #14 tab 01/14/16 10/16/21 Unknown Rx Ibuprofen [Motrin] 800 mg PO Q8HR PRN 21 Days #40 10/14/21 Unknown Rx tablet oxyCODONE /ACETAMINOPHEN [Percocet 1 tab PO Q4HR PRN 21 Days #30 tab 10/14/21 Unknown Rx 5/325] atenoloL [Tenormin] 25 mg PO DAILY #30 tab 10/25/21 Unknown Rx ED Physical Exam - General Limitations: No Limitations General appearance: alert, in no apparent distress - Head Head exam: Present: atraumatic, normocephalic - Eye Eye exam: Present: normal appearance - ENT ENT exam: Present: mucous membranes moist - Neck Neck exam: Present: normal inspection - Respiratory Respiratory exam: Present: normal lung sounds bilaterally. Absent: respiratory distress - Cardiovascular Cardiovascular Exam: Present: regular rate, normal rhythm. Absent: systolic murmur, diastolic murmur, rubs, gallop - GI/Abdominal GI/Abdominal exam: Present: soft, normal bowel sounds - Extremities Exam Extremities exam: Present: normal inspection - Back Exam Back exam: Present: normal inspection - Neurological Exam Neurological exam: Present: alert, oriented X3 - Psychiatric Psychiatric exam: Present: normal affect, normal mood - Skin Skin exam: Present: warm, dry, intact, normal color. Absent: rash ED Course Vital Signs 10/25/21 10/25/21 10/25/21 00:00 01:09 01:10 Temperature 98.2 F 98.6 F Pulse Rate 80 74 74 Respiratory 16 18 Rate Blood Pressure 148/93 Blood Pressure 156/102 148/93 [Left] O2 Sat by Pulse 80 L 99 Oximetry 10/25/21 02:38 Temperature Pulse Rate 75 Respiratory 18 Rate Blood Pressure Blood Pressure 137/86 [Left] O2 Sat by Pulse 99 Oximetry - Reevaluation(s) Reevaluation #1: 10/25/21 03:02 work up neg , x ray clear , BP stable at 130/80 no sob no steven , vss no distress , will start on BP meds will follow up with her doctor ED Medical Decision Making - Lab Data Result diagrams: 10/25/21 00:24 10/25/21 00:24 Critical care attestation.: If time is entered above; I have spent that time in minutes in the direct care of this critically ill patient, excluding procedure time. ED Disposition Clinical Impression: Uncontrolled hypertension Disposition: 01 HOME / SELF CARE / HOMELESS Is pt being admited?: No Does the pt Need Aspirin: No Condition: Stable Instructions: Hypertension (ED), Managing Your Hypertension, Hypertension, Adult Referrals: PRIMARY CARE, [Primary Care Provider] - 3-5 Days
== END 2021-10-25 03:52 | disposition home or self-care (01) ==
LOC: ED 23:50
DX: I10 Essential (primary) hypertension (principal); Z98.890 Other specified postprocedural states; Z79.899 Other long term (current) drug therapy
CPT/HCPCS: 36415; 71046; 80053; 83690; 83880; 84484; 85025; 85610; 99284; J9280